=== PATIENT | female | born 1975 | race Caucasian/White ===

== ENCOUNTER 2016-04-30 14:19 | Emergency (ER) | payer BC ==
[2016-04-30] MEDS ORDERED: SODIUM CHLORIDE 0.9% 1000ML 1,000 ML IVS ONE ×3 (15:13→18:43)
[2016-04-30] MEDS ORDERED: KCL 20MEQ/WATER FOR INJ 100ML 20 MEQ in PREMIX BAG 1 BAG IVPB ONE (16:07)
[2016-04-30] MEDS ORDERED: KCL 20MEQ/WATER FOR INJ 100ML 100 ML IVPB ONE (16:34)
--- NOTE | 2016-04-30 21:17 | ED.PDOC ---
History of Present Illness - General Chief Complaint: Abdominal Pain Stated Complaint: nausea and vomiting, decreased appetite Time Seen by Provider: 04/30/16 14:50 Source: patient, family Exam Limitations: no limitations - History of Present Illness Initial Comments: Patient presents with her significant other who says that she has been refusing to eat or drink for three days. She has complained of an unusual feeling in her stomach. He says that she spits up food and water but that it is not like vomitus. It is more that she is refusing it. He is worried that she might be dehydrated. She is a difficult historian in that she refuses to answer some questions by being silent, yet she will converse with him in between questioning. Patient has an extensive psychiatric history. They have no other complaints currently. Timing/Duration: other - 3 days Severity: moderate Improving Factors: nothing Worsening Factors: nothing Associated Symptoms: loss of appetite Allergies/Adverse Reactions: Allergies Codeine Adverse Reaction (Verified 04/30/16 14:59) makes her feel nauseated adhesive Adverse Reaction (Intermediate, Uncoded 12/18/15 19:00) Other Scarred her after lumpectomy Home Medications: Ambulatory Orders Ziprasidone HCl [Geodon] 80 mg PO BID 09/25/14 Alprazolam [Xanax] 2 mg PO QID 09/19/15 Celecoxib 200 mg PO BID 01/29/16 Diclofenac Sodium (Topical) [Diclofenac Sodium] 1 % TD PRN PRN 01/29/16 Duloxetine HCl 60 mg PO BID 01/29/16 Esomeprazole Magnesium [Nexium] 40 mg PO DAILY 01/29/16 [place] Carbonate [[place] Carbonate ER] 300 mg PO BID 01/29/16 Pregabalin [Lyrica] 50 mg PO BID 01/29/16 Promethazine Tab [Phenergan Tablet] 25 mg PO Q6H PRN 01/29/16 QUEtiapine FUMARATE [Seroquel] 100 - 300 mg PO BEDTIME PRN 01/29/16 predniSONE [Prednisone] 20 mg PO DAILY 01/29/16 Dulera 200-5 Mcg/Act 2 puff INH BID 01/31/16 Albuterol Sulfate Nebs [Proventil Nebs] 2.5 mg INH QID #125 vial 02/02/16 levoFLOXacin [Levaquin] 500 mg PO DAILY #6 tab 02/02/16 Review of Systems - Review of Systems Constitutional: States: weakness EENTM: States: no symptoms reported Respiratory: States: no symptoms reported Cardiology: States: no symptoms reported Gastrointestinal/Abdominal: States: see HPI Genitourinary: States: no symptoms reported Musculoskeletal: States: no symptoms reported Skin: States: no symptoms reported Neurological: States: no symptoms reported Endocrine: States: no symptoms reported Hematologic/Lymphatic: States: no symptoms reported Past Medical History (General) - Patient Medical History Hx Seizures: No Hx Stroke: No Hx Dementia: No Hx Asthma: No Hx of COPD: Yes Hx Cardiac Disorders: No Hx Congestive Heart Failure: No Hx Pacemaker: No Hx Hypertension: No Hx Thyroid Disease: No Hx Diabetes: No Hx Gastroesophageal Reflux: Yes Hx Renal Disease: No Hx Cancer: No Hx of HIV: No Hx Hepatitis C: No Hx MRSA: No Surgical History: cholecystectomy, tonsillectomy, other - Vaccination History Hx Tetanus, Diphtheria Vaccination: Yes Hx Influenza Vaccination: No Hx Pneumococcal Vaccination: Yes - Social History Hx Tobacco Use: Yes Hx Chewing Tobacco Use: No Hx Alcohol Use: Yes Hx Substance Use: No Hx Substance Use Treatment: No Hx Depression: Yes Hx Physical Abuse: No Hx Emotional Abuse: No Hx Suspected Abuse: No - Activities of Daily Living Hospice Agency (if applicable):: None - Female History Patient is a Female of Child Bearing Age (10 -59 yrs old): No Hx Last Menstrual Period: 09/09/10 Patient : No Family Medical History - Family History Mother Family History: No Known Living Status: Still Living Hx Family Cancer: Yes Father Family History: Unknown Living Status: Cause of : cancer lungs Hx Family Asthma: Yes Hx Family Hypertension: Yes Hx Family Diabetes: Yes Hx Family Cancer: Yes Physical Exam - Physical Exam General Appearance: Alert Eye Exam: bilateral normal Ears, Nose, Throat: normal pharynx, other - mucous membranes are dry Neck: non-tender, full range of motion, supple Respiratory: lungs clear Cardiovascular/Chest: regular rate, rhythm Gastrointestinal/Abdominal: normal bowel sounds, non tender, soft Extremity: normal range of motion, non-tender, normal inspection Neurologic: no motor/sensory deficits Skin Exam: normal color Lymphatic: no adenopathy Progress - Progress Progress: 04/30/16 21:18 Cr 1.87 and potassium 3.2 Patient received NS one liter IV bolus x two and KCl 20 meq IV x one then creatinine and potassium were rechecked they were much improved , Cr 1.36 and potassium 3.5 She received a third one liter NS bolus then discharged with orders to increase oral fluids and follow up with her primary doctor this week. Laboratory Tests 04/30/16 04/30/16 15:04 18:56 WBC 9.8 RBC 5.19 Hgb 15.2 Hct 45.8 MCV 88.2 MCH 29.2 MCHC 33.1 RDW 15.6 H Plt Count 140 MPV 10.0 Absolute Neuts (auto) 7.30 H Absolute Lymphs (auto) 1.50 Absolute Monos (auto) 0.70 Absolute Eos (auto) 0.20 Absolute Basos (auto) 0.10 Neutrophils % 74.7 Lymphocytes % 15.5 L Monocytes % 7.2 Eosinophils % 1.8 Basophils % 0.8 Sodium 133 L 134 L Potassium 3.2 L 3.5 L Chloride 98 L 104 Carbon Dioxide 25 23 Anion Gap 13.2 10.5 L BUN 33 H 28 H Creatinine 1.67 H 1.36 H BUN/Creatinine Ratio 19.8 20.6 H Random Glucose 114 H 95 Serum Osmolality 274.5 L 273.5 L Calcium 9.5 8.5 Total Bilirubin 1.3 H AST 15 ALT 11 Alkaline Phosphatase 155 H Serum Total Protein 8.2 Albumin 4.8 Globulin 3.4 Albumin/Globulin Ratio 1.4 Lipase 40 Departure - Departure Clinical Impression: Dehydration, moderate Disposition: Discharge to Home or Self Care Condition: Good Departure Forms: ED Discharge - Pt. Copy, Patient Portal Self Enrollment Instructions: DI for Abdominal Pain-Adult Diet: other - increase oral fluids Home Medications: Ambulatory Orders Ziprasidone HCl [Geodon] 80 mg PO BID 09/25/14 Alprazolam [Xanax] 2 mg PO QID 09/19/15 Celecoxib 200 mg PO BID 01/29/16 Diclofenac Sodium (Topical) [Diclofenac Sodium] 1 % TD PRN PRN 01/29/16 Duloxetine HCl 60 mg PO BID 01/29/16 Esomeprazole Magnesium [Nexium] 40 mg PO DAILY 01/29/16 [place] Carbonate [[place] Carbonate ER] 300 mg PO BID 01/29/16 Pregabalin [Lyrica] 50 mg PO BID 01/29/16 Promethazine Tab [Phenergan Tablet] 25 mg PO Q6H PRN 01/29/16 QUEtiapine FUMARATE [Seroquel] 100 - 300 mg PO BEDTIME PRN 01/29/16 predniSONE [Prednisone] 20 mg PO DAILY 01/29/16 Dulera 200-5 Mcg/Act 2 puff INH BID 01/31/16 Albuterol Sulfate Nebs [Proventil Nebs] 2.5 mg INH QID #125 vial 02/02/16 levoFLOXacin [Levaquin] 500 mg PO DAILY #6 tab 02/02/16 Additional Instructions: Increase oral fluids. See your primary doctor this week.
[2016-04-30 22:01] VITALS: BP 102/68; TEMP 97.2; O2SAT 98
== END 2016-04-30 22:01 | disposition home or self-care (01) ==
LOC: ER 14:19
DX: E86.0 Dehydration (principal); J44.9 Chronic obstructive pulmonary disease, unspecified; K21.9 Gastro-esophageal reflux disease without esophagitis; Z87.891 Personal history of nicotine dependence; Z79.899 Other long term (current) drug therapy; Z91.048 Other nonmedicinal substance allergy status; Z88.6 Allergy status to analgesic agent
CPT/HCPCS: 36415; 80048; 80053; 83690; 85025; J3480; J7030

== ENCOUNTER 2016-05-02 09:29 | Emergency (ER) | payer BC ==
[2016-05-02] MEDS ORDERED: SODIUM CHLORIDE 0.9% 1000ML 1,000 ML IVS ONE (10:32)
--- NOTE | 2016-05-02 10:36 | ED.PDOC ---
History of Present Illness - General Chief Complaint: Neuro Symptoms/Deficits Stated Complaint: Confusion Time Seen by Provider: 05/02/16 10:19 Source: family Exam Limitations: clinical condition - History of Present Illness Initial Comments: Patient presents with altered mental status. She was here two days ago for weakness and refusal to eat and drink. She received NS boluses and became talkative and back to her baseline. Diagnosed with dehydration. She ate and drank upon getting home but then started to descend back into a lethargic state. Refuses to eat or drink. She normally smokes and she does not want to do that. She is alert and oriented to person, place, and time. The is worried that she has had a stroke. Patient will not answer any questions. Timing/Duration: other - 5 days, improved, then 2 days of current symptoms Improving Factors: nothing Worsening Factors: nothing Associated Symptoms: loss of appetite, malaise Allergies/Adverse Reactions: Allergies Codeine Adverse Reaction (Verified 04/30/16 14:59) makes her feel nauseated adhesive Adverse Reaction (Intermediate, Uncoded 12/18/15 19:00) Other Scarred her after lumpectomy Home Medications: Ambulatory Orders Ziprasidone HCl [Geodon] 80 mg PO BID 09/25/14 Alprazolam [Xanax] 2 mg PO QID 09/19/15 Celecoxib 200 mg PO BID 01/29/16 Diclofenac Sodium (Topical) [Diclofenac Sodium] 1 % TD PRN PRN 01/29/16 Duloxetine HCl 60 mg PO BID 01/29/16 Esomeprazole Magnesium [Nexium] 40 mg PO DAILY 01/29/16 [place] Carbonate [[place] Carbonate ER] 300 mg PO BID 01/29/16 Promethazine Tab [Phenergan Tablet] 25 mg PO Q6H PRN 01/29/16 QUEtiapine FUMARATE [Seroquel] 100 - 300 mg PO BEDTIME PRN 01/29/16 Dulera 200-5 Mcg/Act 2 puff INH BID 01/31/16 Albuterol Sulfate Nebs [Proventil Nebs] 2.5 mg INH QID #125 vial 02/02/16 levoFLOXacin [Levaquin] 500 mg PO DAILY #6 tab 02/02/16 Review of Systems - Review of Systems Constitutional: States: see HPI EENTM: States: no symptoms reported Respiratory: States: no symptoms reported Cardiology: States: no symptoms reported Gastrointestinal/Abdominal: States: no symptoms reported Genitourinary: States: no symptoms reported Musculoskeletal: States: no symptoms reported Skin: States: no symptoms reported Neurological: States: see HPI Endocrine: States: no symptoms reported, intolerance to heat Unable to Obtain Due To: condition Past Medical History (General) - Patient Medical History Hx Seizures: No Hx Stroke: No Hx Dementia: No Hx Asthma: No Hx of COPD: Yes Hx Cardiac Disorders: No Hx Congestive Heart Failure: No Hx Pacemaker: No Hx Hypertension: No Hx Thyroid Disease: Yes Hx Diabetes: No Hx Gastroesophageal Reflux: Yes Hx Renal Disease: No Hx Cancer: No Hx of HIV: No Hx Hepatitis C: No Hx MRSA: No Surgical History: cholecystectomy - Vaccination History Hx Tetanus, Diphtheria Vaccination: No Hx Influenza Vaccination: No Hx Pneumococcal Vaccination: No Immunizations Up to Date: Yes - Social History Hx Tobacco Use: Yes Hx Chewing Tobacco Use: No Hx Alcohol Use: Yes Hx Substance Use: No Hx Substance Use Treatment: No Hx Depression: No Feels Threatened In Home Enviroment: No Feels Threatened In a Relationship: No Hx Physical Abuse: No Hx Emotional Abuse: No Hx Suspected Abuse: No - Female History Patient is a Female of Child Bearing Age (10 -59 yrs old): Yes Hx Last Menstrual Period: 09/09/10 Patient : No Family Medical History - Family History Mother Family History: No Known Living Status: Still Living Hx Family Cancer: Yes Father Family History: Unknown Living Status: Cause of : cancer lungs Hx Family Asthma: Yes Hx Family Hypertension: Yes Hx Family Diabetes: Yes Hx Family Cancer: Yes Physical Exam - Physical Exam General Appearance: Alert, Lethargic Eye Exam: bilateral normal Ears, Nose, Throat: normal ENT inspection Neck: non-tender, full range of motion, supple Respiratory: lungs clear Cardiovascular/Chest: regular rate, rhythm Gastrointestinal/Abdominal: normal bowel sounds, non tender, soft Back Exam: normal inspection Extremity: normal inspection Neurologic: fudger II-XII nml as tested, no motor/sensory deficits, alert, depressed affect Skin Exam: normal color Lymphatic: no adenopathy Progress - Progress Progress: 05/02/16 15:26 Patient receive one liter NS bolus. AP was elevated and she vomited several times. CT head was negative and CT abdomen/pelvis was negative for acute disease. Suspicion for [place] toxicity vs. psychogenic causes vs. polypharmacy. Laboratory Tests 05/02/16 05/02/16 05/02/16 10:31 10:55 13:05 WBC 8.3 RBC 4.95 Hgb 14.2 Hct 43.4 MCV 87.8 MCH 28.8 MCHC 32.8 L RDW 15.8 H Plt Count 120 L MPV 9.9 Absolute Neuts (auto) 5.10 Absolute Lymphs (auto) 2.20 Absolute Monos (auto) 0.60 Absolute Eos (auto) 0.30 Absolute Basos (auto) 0.10 Neutrophils % 61.9 Lymphocytes % 26.2 Monocytes % 7.0 Eosinophils % 3.9 Basophils % 1.0 Sodium 135 Potassium 3.4 L Chloride 103 Carbon Dioxide 25 Anion Gap 10.4 L BUN 14 Creatinine 0.79 BUN/Creatinine Ratio 17.7 Random Glucose 127 H D Serum Osmolality 272.2 L Calcium 9.4 Total Bilirubin 0.9 AST 17 ALT 13 Alkaline Phosphatase 155 H Serum Total Protein 7.2 Albumin 4.4 Globulin 2.8 Albumin/Globulin Ratio 1.6 TSH 7.73 H Thyroxine (T4) 6.46 Serum HCG, Qual Negative Salicylates < 4.0 Acetaminophen < 10.0 L Transfer to [facility]. Departure - Departure Clinical Impression: Altered mental status Disposition: Transfer to Hospital Condition: Fair Departure Forms: ED Discharge - Pt. Copy, Patient Portal Self Enrollment Diet: other - As pre hospitalist Home Medications: Ambulatory Orders Ziprasidone HCl [Geodon] 80 mg PO BID 09/25/14 Alprazolam [Xanax] 2 mg PO QID 09/19/15 Celecoxib 200 mg PO BID 01/29/16 Diclofenac Sodium (Topical) [Diclofenac Sodium] 1 % TD PRN PRN 01/29/16 Duloxetine HCl 60 mg PO BID 01/29/16 Esomeprazole Magnesium [Nexium] 40 mg PO DAILY 01/29/16 [place] Carbonate [[place] Carbonate ER] 300 mg PO BID 01/29/16 Promethazine Tab [Phenergan Tablet] 25 mg PO Q6H PRN 01/29/16 QUEtiapine FUMARATE [Seroquel] 100 - 300 mg PO BEDTIME PRN 01/29/16 Dulera 200-5 Mcg/Act 2 puff INH BID 01/31/16 Albuterol Sulfate Nebs [Proventil Nebs] 2.5 mg INH QID #125 vial 02/02/16 levoFLOXacin [Levaquin] 500 mg PO DAILY #6 tab 02/02/16
--- NOTE | 2016-05-02 11:37 | CT ---
EXAM DESCRIPTION: CT HEAD WITHOUT IV CONTRAST CLINICAL HISTORY: altered mental status COMPARISON: None available TECHNIQUE: Non contrast cranial CT FINDINGS: Ventricles and sulci are unremarkable. There is no hemorrhage or mass. There are no white matter abnormalities detected. The calvarium is unremarkable. The visualized paranasal sinuses and the mastoids are clear. IMPRESSION: 1. Normal CT head Electronically signed by: Kana Roberts MD 05/02/2016 11:35
[2016-05-02] MEDS ORDERED: ONDANSETRON INJ 4 MG/2 ML VIAL IV ONE (13:10)
--- NOTE | 2016-05-02 13:22 | CT ---
EXAM DESCRIPTION: CT ABDOMEN PELVIS WITH IV CONTRAST CLINICAL HISTORY: vomiting, anorexia COMPARISON: None. TECHNIQUE: Post-contrast CT images of the abdomen and pelvis are obtained. CT scan done according to ALARA (As Low As Reasonably Achievable). FINDINGS: The visualized lung bases show mild atelectasis in the right middle lobe and right lower lobe. The liver, spleen comma pancreas, and adrenal glands are unremarkable. Surgical clips from cholecystectomy are seen without biliary tract obstruction. Abdominal vasculature is unremarkable. Kidneys show no abnormal calcifications. Low-attenuation probable cysts measuring 10 mm in the at upper pole cortex of the left kidney is seen. This is incompletely evaluated. No hydronephrosis. Urinary bladder is unremarkable. The uterus and ovaries are unremarkable. Appendix is within normal limits. No small bowel obstruction or inflammatory changes are seen. Colon is unremarkable. No significant diverticular disease. No pathologic lymphadenopathy is seen. No free intraperitoneal air or drainable fluid collections are identified. No aggressive bony lesions are identified. IMPRESSION: No acute findings on CT of the abdomen and pelvis. Cholecystectomy changes are noted. Mild probable atelectasis is seen in the lung bases. Electronically signed by: Ze Light MD 05/02/2016 13:21
[2016-05-02 16:46] VITALS: BP 139/78; TEMP 98.8; O2SAT 97
== END 2016-05-02 16:35 | disposition short-term general hospital (02) ==
LOC: ER 09:29
DX: R41.82 Altered mental status, unspecified (principal); J44.9 Chronic obstructive pulmonary disease, unspecified; K21.9 Gastro-esophageal reflux disease without esophagitis; E07.9 Disorder of thyroid, unspecified; Z87.891 Personal history of nicotine dependence; Z88.6 Allergy status to analgesic agent; Z91.048 Other nonmedicinal substance allergy status; Z79.899 Other long term (current) drug therapy
CPT/HCPCS: 70450; 74177; 80053; 80329; 84436; 84443; 84703; 85025; J2405; J7030

== ENCOUNTER 2016-07-16 07:21 | Emergency (ER) | payer BC ==
[2016-07-16 07:36] VITALS: TEMP 96.8
--- NOTE | 2016-07-16 07:44 | ED.PDOC ---
History of Present Illness - General Chief Complaint: Back Pain or Injury Stated Complaint: back pain Time Seen by Provider: 07/16/16 07:32 Source: patient, RN notes reviewed, Vital Signs reviewed Exam Limitations: no limitations - History of Present Illness Initial Comments: Patient comes in with c/o low back pain that started yesterday. She is concerned she has a ruptured disc or a UTI. She reports no trauma or recent injury. No urinary symptoms. No radiation of pain. No numbness, tingling or weakness in legs. Pain is worse with movement. Timing/Duration: 24 hours Quality/Severity: moderate, dullness, sharpness Back Pain Location: lumbar spine Back Pain Radiation: other - None Method of Injury/Prior Injury: other - None Improving Factors: rest Worsening Factors: movement Associated Symptoms: lower back pain Allergies/Adverse Reactions: Allergies Codeine Adverse Reaction (Verified 04/30/16 14:59) makes her feel nauseated adhesive Adverse Reaction (Intermediate, Uncoded 12/18/15 19:00) Other Scarred her after lumpectomy Home Medications: Ambulatory Orders Ziprasidone HCl [Geodon] 80 mg PO BID 09/25/14 Alprazolam [Xanax] 2 mg PO QID 09/19/15 Celecoxib 100 mg PO BID 01/29/16 Duloxetine HCl 30 mg PO BID 01/29/16 QUEtiapine FUMARATE [Seroquel] 300 mg PO BEDTIME PRN 01/29/16 Cyclobenzaprine HCl [Flexeril] 5 mg PO Q8HR PRN #12 tab 07/16/16 Naproxen [Naprosyn] 500 mg PO PRN 07/16/16 Nitrofurantoin Monohydrate Mac [Macrobid] 100 mg PO BID #20 cap 07/16/16 Pregabalin [Lyrica] 75 mg PO BID 07/16/16 Thyroid [Nature-Throid] 32.5 mg PO DAILY 07/16/16 Triamterene & Hydrochlorothiaz [Maxzide-25 37.5-25 mg] 1 tab PO DAILY 07/16/16 Review of Systems - Review of Systems Constitutional: States: no symptoms reported EENTM: States: no symptoms reported Respiratory: States: no symptoms reported Cardiology: States: no symptoms reported Gastrointestinal/Abdominal: States: no symptoms reported Genitourinary: States: no symptoms reported. Denies: dysuria, frequency, pain Musculoskeletal: States: back pain. Denies: muscle stiffness, neck pain Skin: States: no symptoms reported Neurological: States: no symptoms reported. Denies: numbness, paresthesia, tingling, weakness All other Systems: No Change from Baseline Past Medical History (General) - Patient Medical History Hx Seizures: No Hx Stroke: No Hx Dementia: No Hx Asthma: No Hx of COPD: Yes Hx Cardiac Disorders: No Hx Congestive Heart Failure: No Hx Pacemaker: No Hx Hypertension: No Hx Thyroid Disease: Yes Hx Diabetes: No Hx Gastroesophageal Reflux: Yes Hx Renal Disease: No Hx Cancer: No Hx of HIV: No Hx Hepatitis C: No Hx MRSA: No Surgical History: cholecystectomy, tonsillectomy - Vaccination History Hx Tetanus, Diphtheria Vaccination: No Hx Influenza Vaccination: No Hx Pneumococcal Vaccination: No - Social History Hx Tobacco Use: Yes - smokes 2 ppd Hx Chewing Tobacco Use: No Hx Alcohol Use: Yes Hx Substance Use: No Hx Substance Use Treatment: No Hx Depression: No Hx Physical Abuse: No Hx Emotional Abuse: No Hx Suspected Abuse: No - Female History Hx Last Menstrual Period: 09/09/10 Patient : No Family Medical History - Family History Mother Family History: No Known Living Status: Still Living Hx Family Cancer: Yes Father Family History: Unknown Living Status: Cause of : cancer lungs Hx Family Asthma: Yes Hx Family Hypertension: Yes Hx Family Diabetes: Yes Hx Family Cancer: Yes Physical Exam - Physical Exam General Appearance: Alert, No apparent distress, Lethargic - Due to taking Seroquel last night and not sleeping, reports this is normal for her., Well Developed, Well Groomed, Well Hydrated, Well Nourished, Other - uncomfortable Cardiovascular/Respiratory: regular rate, rhythm, no M/R/G, no JVD, normal breath sounds, no respiratory distress Gastrointestinal/Abdominal: normal bowel sounds, non tender, soft, no organomegaly, no pulsatile mass Back Exam: no CVA tenderness, vertebral tenderness - Lumbar spine, other - Pain with movement. Extremity Exam: no evidence of injury, normal range of motion, non-tender, no pedal edema Neurologic: no motor/sensory deficits, alert, normal mood/affect, oriented x 3 Skin Exam: normal color, warm/dry Progress - Progress Progress: 07/16/16 08:54 Patient up walking without difficulty. Urine does show UTI so will start Macrobid. - Results/Orders Results/Orders: Laboratory Tests 07/16/16 08:26 Urine Color [place] H Urine Appearance Clear Urine pH 5.0 Ur Specific [place] 1.015 Urine Protein 100 H Urine Glucose (UA) 100 H Urine Ketones Trace Urine Blood Negative Urine Nitrite Positive H Urine Bilirubin Small H Urine Urobilinogen 2.0 H Ur Leukocyte Esterase Large H Urine RBC 0 Urine WBC 0 Ur Epithelial Cells 0 Urine Bacteria 0 Departure - Departure Clinical Impression: Acute cystitis Qualifiers: Hematuria presence: with hematuria Qualified Code(s): N30.01 - Acute cystitis with hematuria Lumbar strain Qualifiers: Encounter type: initial encounter Qualified Code(s): S39.012A - Strain of muscle, fascia and tendon of lower back, initial encounter Time of Disposition: 09:03 Disposition: Discharge to Home or Self Care Condition: Good Departure Forms: ED Discharge - Pt. Copy, Patient Portal Self Enrollment Instructions: DI for Low Back Pain, DI for Acute Cystitis Diet: resume usual diet Activity: increase activity as tolerated Referrals: GLADIS EPPS,RASHAD Rascon [Primary Care Provider] - 1-2 Weeks Prescriptions: Cyclobenzaprine HCl [Flexeril] 5 mg PO Q8HR PRN #12 tab PRN Reason: Moderate To Severe Pain Nitrofurantoin Monohydrate Mac [Macrobid] 100 mg PO BID #20 cap Home Medications: Ambulatory Orders Ziprasidone HCl [Geodon] 80 mg PO BID 09/25/14 Alprazolam [Xanax] 2 mg PO QID 09/19/15 Celecoxib 100 mg PO BID 01/29/16 Duloxetine HCl 30 mg PO BID 01/29/16 QUEtiapine FUMARATE [Seroquel] 300 mg PO BEDTIME PRN 01/29/16 Cyclobenzaprine HCl [Flexeril] 5 mg PO Q8HR PRN #12 tab 07/16/16 Naproxen [Naprosyn] 500 mg PO PRN 07/16/16 Nitrofurantoin Monohydrate Mac [Macrobid] 100 mg PO BID #20 cap 07/16/16 Pregabalin [Lyrica] 75 mg PO BID 07/16/16 Thyroid [Nature-Throid] 32.5 mg PO DAILY 07/16/16 Triamterene & Hydrochlorothiaz [Maxzide-25 37.5-25 mg] 1 tab PO DAILY 07/16/16
[2016-07-16] MEDS: CYCLOBENZAPRINE HCL 5 MG TAB PO ONE (07:45)
--- NOTE | 2016-07-16 08:08 | RAD ---
PROCEDURE: Lumbar Spine 3 Views Clinical History: low back pain Indication: Same as above Comparison: None . Technique: 3.0 views of the lumbar spine were done. Findings: There is no loss of vertebral body height. There is no evidence of spondylolisthesis in the lumbosacral spine. The intervertebral disc spaces are well-maintained. There is mild anterolateral osteophyte formation seen at L4 and L5 levels. There is no significant scoliotic curvature of the lumbar spine. The bone mineralization is normal for patient's age. The thoracolumbar and the lumbosacral junction are intact. The visualized portions of the bilateral sacroiliac joints are unremarkable. The paravertebral soft tissues are radiographically unremarkable. The posterior elements are normal. There is no visualization of any radiopaque foreign bodies in the soft tissues. Impression: Minimal degenerative change in the lumbar spine, as described above Location of Interpretation: [facility] Electronically signed by: Allan Ferrer MD 07/16/2016 8:08 AM CDT
[2016-07-16] MEDS: KETOROLAC TROMETHAMINE INJ 60 MG/2 ML VIAL IM ONE (08:52)
[2016-07-16 08:58] VITALS: BP 109/65; O2SAT 95
== END 2016-07-16 09:11 | disposition home or self-care (01) ==
LOC: ER 07:21
DX: S39.012A Strain of muscle, fascia and tendon of lower back, initial encounter (principal); N30.01 Acute cystitis with hematuria; F17.200 Nicotine dependence, unspecified, uncomplicated; J44.9 Chronic obstructive pulmonary disease, unspecified; K21.9 Gastro-esophageal reflux disease without esophagitis; E07.9 Disorder of thyroid, unspecified; Z79.899 Other long term (current) drug therapy; Z85.118 Personal history of other malignant neoplasm of bronchus and lung; Z88.6 Allergy status to analgesic agent; Z91.048 Other nonmedicinal substance allergy status

== ENCOUNTER 2016-09-21 17:46 | Emergency (ER) | payer OTHER ==
[2016-09-21 18:02] VITALS: O2SAT 95
[2016-09-21] MEDS ORDERED: METOCLOPRAMIDE HCL INJ 10 MG/2 ML VIAL IV ONE (18:13)
[2016-09-21] MEDS ORDERED: LIDOCAINE VIS-MYLANTA 30 ML UD PO ONE (18:13)
--- NOTE | 2016-09-21 18:47 | RAD ---
EXAM DESCRIPTION: Abdomen Series CLINICAL HISTORY: 41 years Female ,abd pain, n/v COMPARISON: None. TECHNIQUE: Frontal view chest x-ray and two views of the abdomen. FINDINGS: The cardiomediastinal silhouette appears unremarkable. No consolidating infiltrates or pleural effusions. No free air is identified beneath the hemidiaphragms. No dilated loops of bowel to suggest obstruction. IMPRESSION: No acute plain film abnormality is identified. Electronically signed by: Debora Kenyon 09/21/2016 6:46 PM CDT
[2016-09-21] MEDS ORDERED: HYDROmorphone HCL INJ 2 MG/ML VIAL IV ONE (20:30)
[2016-09-21] MEDS ORDERED: DICYCLOMINE HCL 20 MG TAB PO ONE (20:30)
[2016-09-21] MEDS ORDERED: SODIUM CHLORIDE 0.9% 1000ML 1,000 ML IVS ONE (20:31)
--- NOTE | 2016-09-21 22:26 | ED.PDOC ---
History of Present Illness - General Chief Complaint: Abdominal Pain Stated Complaint: abdominal pain Time Seen by Provider: 09/21/16 18:03 Source: patient Exam Limitations: no limitations - History of Present Illness Initial Comments: the patient is a 41-year-old female presenting to the emergency room secondary to abdominal pain with nausea and vomiting for the last 3 days. No definite fevers. No urinary symptoms. No back pain. No blood or bile in the vomitus. No syncope or near syncope. No palpitations. Looking back over the patient's history she has had multiple episodesof nausea and vomiting and abdominal pain. Abdominal pain is diffuse. It is somewhat cramping in nature. The severity fluctuates. The patient does also have significant anxiety. She does take multiple medications which can cause stomach discomfort.the patient has seen gastroenterology on multiple occasions. She reports that she has had endoscopies donethat did not show on the cause for the pain. Severity: moderate Improving Factors: nothing Worsening Factors: nothing Associated Symptoms: malaise, nausea/vomiting Allergies/Adverse Reactions: Allergies Codeine Adverse Reaction (Verified 09/21/16 18:02) makes her feel nauseated adhesive Adverse Reaction (Intermediate, Uncoded 09/21/16 18:02) Other Scarred her after lumpectomy Home Medications: Ambulatory Orders Ziprasidone HCl [Geodon] 80 mg PO BID 09/25/14 Alprazolam [Xanax] 2 mg PO QID 09/19/15 Celecoxib 100 mg PO BID 01/29/16 Duloxetine HCl 30 mg PO BID 01/29/16 QUEtiapine FUMARATE [Seroquel] 300 mg PO BEDTIME PRN 01/29/16 Cyclobenzaprine HCl [Flexeril] 5 mg PO Q8HR PRN #12 tab 07/16/16 Naproxen [Naprosyn] 500 mg PO PRN 07/16/16 Nitrofurantoin Monohydrate Mac [Macrobid] 100 mg PO BID #20 cap 07/16/16 Pregabalin [Lyrica] 75 mg PO BID 07/16/16 Thyroid [Nature-Throid] 32.5 mg PO DAILY 07/16/16 Triamterene & Hydrochlorothiaz [Maxzide-25 37.5-25 mg] 1 tab PO DAILY 07/16/16 Xmqrrqvofyezp-Jkml-Pnmlitlkmd [Fioricet] 1 ea PO Q8H PRN #21 tab 09/21/16 Dicyclomine HCl 10 mg PO Q8HRS PRN #30 cap 09/21/16 Review of Systems - Review of Systems Constitutional: States: no symptoms reported EENTM: States: no symptoms reported Respiratory: States: no symptoms reported Cardiology: States: no symptoms reported Gastrointestinal/Abdominal: States: abdominal pain, nausea, vomiting Genitourinary: States: no symptoms reported Musculoskeletal: States: no symptoms reported Skin: States: no symptoms reported Neurological: States: anxiety Endocrine: States: no symptoms reported All other Systems: No Change from Baseline Past Medical History (General) - Patient Medical History Hx Seizures: No Hx Stroke: No Hx Dementia: No Hx Asthma: No Hx of COPD: Yes Hx Cardiac Disorders: No Hx Congestive Heart Failure: No Hx Pacemaker: No Hx Hypertension: No Hx Thyroid Disease: Yes Hx Diabetes: No Hx Gastroesophageal Reflux: Yes Hx Renal Disease: No Hx Cancer: No Hx of HIV: No Hx Hepatitis C: No Hx MRSA: No Surgical History: cholecystectomy, other - Vaccination History Hx Tetanus, Diphtheria Vaccination: No Hx Influenza Vaccination: No Hx Pneumococcal Vaccination: No - Social History Hx Tobacco Use: Yes - smokes 2 ppd Hx Chewing Tobacco Use: No Hx Alcohol Use: Yes - occ Hx Substance Use: No Hx Substance Use Treatment: No Hx Depression: No Hx Physical Abuse: No Hx Emotional Abuse: No Hx Suspected Abuse: No - Female History Patient is a Female of Child Bearing Age (10 -59 yrs old): No Hx Last Menstrual Period: 09/09/10 Patient : No Family Medical History - Family History Mother Family History: No Known Living Status: Still Living Hx Family Cancer: Yes Father Family History: Unknown Living Status: Cause of : cancer lungs Hx Family Asthma: Yes Hx Family Hypertension: Yes Hx Family Diabetes: Yes Hx Family Cancer: Yes Physical Exam - Physical Exam General Appearance: Alert, Anxious, Obvious distress Ears, Nose, Throat: hearing grossly normal, normal pharynx Neck: non-tender, supple Respiratory: chest non-tender, lungs clear, normal breath sounds, no respiratory distress, no accessory muscle use Cardiovascular/Chest: normal peripheral pulses, regular rate, rhythm, no edema Peripheral Pulses: radial,right: 2+, radial,left: 2+, dorsalis pedis,right: 2+, dorsalis pedis,left: 2+ Gastrointestinal/Abdominal: soft, other - obese, diffuse discomfort to palpation. No definite rebound or peritoneal signs. Rectal Exam: deferred Back Exam: no CVA tenderness Extremity: normal range of motion, non-tender, normal inspection, no pedal edema , normal capillary refill Neurologic: alert, oriented x 3, other - extremely anxious Skin Exam: normal color Comments: Vital Signs - 24 hr 09/21/16 17:50 Temperature 97.0 F L Pulse Rate [ 100 H pulse ox] Respiratory 20 Rate Blood Pressure 116/75 [Left Arm] O2 Sat by Pulse 95 Oximetry Progress - Progress Progress: 09/21/16 22:29 the patient is a 41-year-old female presenting with a recurrence of her abdominal pain and nausea and vomiting. The patient received some IV fluids for mild dehydration. She received a dose of opiate pain medications as well as some nausea medications and dicyclomine. She is feeling better at this point. When her stomach is settled back down she needs to start taking a Centrum silver daily with food but not with her other medications. she needs to keep well-hydrated. She needs to keep follow-up with her primary care doctor early next week. She should also keep follow-up with gastroenterology. The patient is going to be written for a short prescription of dicyclomine to use as a trial to see if this helps with her symptoms. A short prescription of Fioricet will also be used for pain control. ER warnings were given. - Results/Orders Results/Orders: Laboratory Tests 09/21/16 09/21/16 09/21/16 18:25 18:25 18:25 WBC 8.4 RBC 5.54 H Hgb 15.4 Hct 46.3 MCV 83.5 MCH 27.7 MCHC 33.4 RDW 17.6 H Plt Count 197 MPV 8.9 Absolute Neuts (auto) 4.60 Absolute Lymphs (auto) 3.00 Absolute Monos (auto) 0.50 Absolute Eos (auto) 0.20 Absolute Basos (auto) 0.10 Neutrophils % 55.2 Lymphocytes % 35.2 Monocytes % 5.8 Eosinophils % 2.9 Basophils % 0.9 PT 10.7 INR 0.950 PTT (SP) 30.9 Sodium 139 Potassium 3.5 L Chloride 102 Carbon Dioxide 25 Anion Gap 15.5 BUN 18 Creatinine 1.05 BUN/Creatinine Ratio 17.1 Random Glucose 94 Serum Osmolality 279.2 Lactic Acid Calcium 9.3 Magnesium 2.1 Total Bilirubin 0.7 AST 19 ALT 19 Alkaline Phosphatase 91 Creatine Kinase 54 CK-MB (CK-2) 0.9 CK-MB (CK-2) % Not Reportable Troponin I < 0.02 Serum Total Protein 8.2 Albumin 4.6 Globulin 3.6 H Albumin/Globulin Ratio 1.3 Amylase 36 Lipase 20 L Serum HCG, Qual 09/21/16 09/21/16 18:25 18:45 WBC RBC Hgb Hct MCV MCH MCHC RDW Plt Count MPV Absolute Neuts (auto) Absolute Lymphs (auto) Absolute Monos (auto) Absolute Eos (auto) Absolute Basos (auto) Neutrophils % Lymphocytes % Monocytes % Eosinophils % Basophils % PT INR PTT (SP) Sodium Potassium Chloride Carbon Dioxide Anion Gap BUN Creatinine BUN/Creatinine Ratio Random Glucose Serum Osmolality Lactic Acid 1.4 Calcium Magnesium Total Bilirubin AST ALT Alkaline Phosphatase Creatine Kinase CK-MB (CK-2) CK-MB (CK-2) % Troponin I Serum Total Protein Albumin Globulin Albumin/Globulin Ratio Amylase Lipase Serum HCG, Qual Negative abdominal x-ray appears benign. Departure - Departure Clinical Impression: Cyclical vomiting with nausea Qualifiers: Vomiting Intractability: unspecified Qualified Code(s): G43.A0 - Cyclical vomiting, not intractable Disposition: Discharge to Home or Self Care Departure Forms: ED Discharge - Pt. Copy, Patient Portal Self Enrollment Instructions: DI for Abdominal Pain-Adult Referrals: GLADIS EPPS,RASHAD Rascon [Primary Care Provider] - 1-2 Weeks Prescriptions: Dicyclomine HCl 10 mg PO Q8HRS PRN #30 cap PRN Reason: Abdominal Cramping Mqjbsqcozmtqx-Cstu-Voqzmovuyh [Fioricet] 1 ea PO Q8H PRN #21 tab PRN Reason: Pain Home Medications: Ambulatory Orders Ziprasidone HCl [Geodon] 80 mg PO BID 09/25/14 Alprazolam [Xanax] 2 mg PO QID 09/19/15 Celecoxib 100 mg PO BID 01/29/16 Duloxetine HCl 30 mg PO BID 01/29/16 QUEtiapine FUMARATE [Seroquel] 300 mg PO BEDTIME PRN 01/29/16 Cyclobenzaprine HCl [Flexeril] 5 mg PO Q8HR PRN #12 tab 07/16/16 Naproxen [Naprosyn] 500 mg PO PRN 07/16/16 Nitrofurantoin Monohydrate Mac [Macrobid] 100 mg PO BID #20 cap 07/16/16 Pregabalin [Lyrica] 75 mg PO BID 07/16/16 Thyroid [Nature-Throid] 32.5 mg PO DAILY 07/16/16 Triamterene & Hydrochlorothiaz [Maxzide-25 37.5-25 mg] 1 tab PO DAILY 07/16/16 Vytwmvpxpqfhb-Czig-Esyszcxfyu [Fioricet] 1 ea PO Q8H PRN #21 tab 09/21/16 Dicyclomine HCl 10 mg PO Q8HRS PRN #30 cap 09/21/16 Additional Instructions: the patient is a 41-year-old female presenting with a recurrence of her abdominal pain and nausea and vomiting. The patient received some IV fluids for mild dehydration. She received a dose of opiate pain medications as well as some nausea medications and dicyclomine. She is feeling better at this point. When her stomach is settled back down she needs to start taking a Centrum silver daily with food but not with her other medications. she needs to keep well-hydrated. She needs to keep follow-up with her primary care doctor early next week. She should also keep follow-up with gastroenterology. The patient is going to be written for a short prescription of dicyclomine to use as a trial to see if this helps with her symptoms. A short prescription of Fioricet will also be used for pain control. ER warnings were given.
[2016-09-21 23:00] VITALS: BP 119/74; TEMP 98.1
== END 2016-09-21 22:40 | disposition home or self-care (01) ==
LOC: ER 17:46
DX: G43.A0 Cyclical vomiting, in migraine, not intractable (principal); J44.9 Chronic obstructive pulmonary disease, unspecified; E07.9 Disorder of thyroid, unspecified; K21.9 Gastro-esophageal reflux disease without esophagitis; F17.200 Nicotine dependence, unspecified, uncomplicated; Z88.6 Allergy status to analgesic agent; Z91.048 Other nonmedicinal substance allergy status; Z79.899 Other long term (current) drug therapy
CPT/HCPCS: 36415; 74020; 80053; 82150; 82550; 82553; 83605; 83690; 83735; 84484; 84703; 85025; 85610; 85730; J1170; J2765; J7030

== ENCOUNTER 2016-11-16 01:49 | Emergency (ER) | payer OTHER ==
[2016-11-16 02:05] VITALS: BP 111/78; TEMP 97.8; O2SAT 92
[2016-11-16] MEDS ORDERED: KETOROLAC TROMETHAMINE INJ 30 MG/ML VIAL IM ONE (02:42)
[2016-11-16] MEDS ORDERED: CIPROFLOXACIN 500 MG TAB PO ONE (02:42)
--- NOTE | 2016-11-16 02:45 | ED.PDOC ---
History of Present Illness - General Chief Complaint: Back Pain or Injury Stated Complaint: bilat flank pain x's 1 week Time Seen by Provider: 11/16/16 02:19 Source: patient Exam Limitations: no limitations - History of Present Illness Initial Comments: the patient is a 41-year-old female presenting to the emergency room secondary to bilateral back painin the mid to low back. She has had some urinary symptoms of frequencyand mild dysuria. She does have a history of recurrent urinary tract infections. No definite fevers. She has had some malaise. Additionally she did just have her Lamictal dose ramped up. She is on numerous other medications.she denies constipation or diarrhea. Timing/Duration: 1 week Severity: moderate Improving Factors: nothing Worsening Factors: nothing Associated Symptoms: malaise Allergies/Adverse Reactions: Allergies Codeine Adverse Reaction (Verified 11/16/16 02:05) makes her feel nauseated adhesive Adverse Reaction (Intermediate, Uncoded 11/16/16 02:05) Other Scarred her after lumpectomy Home Medications: Ambulatory Orders Ziprasidone HCl [Geodon] 80 mg PO BID 09/25/14 Alprazolam [Xanax] 2 mg PO QID 09/19/15 Celecoxib 100 mg PO BID 01/29/16 QUEtiapine FUMARATE [Seroquel] 300 mg PO BEDTIME PRN 01/29/16 Thyroid [Nature-Throid] 32.5 mg PO DAILY 07/16/16 Triamterene & Hydrochlorothiaz [Maxzide-25 37.5-25 mg] 1 tab PO DAILY 07/16/16 Phydwzumugdft-Tqeo-Snfsbhhyxi [Fioricet] 1 ea PO Q8H PRN #21 tab 11/16/16 Ciprofloxacin [Cipro] 250 mg PO BID #7 tab 11/16/16 Mometasone Furoate-Formoterol [Dulera 100-5 Mcg/Act] 1 aer IN PRN 11/16/16 Pantoprazole Tablet [Protonix] 40 mg PO ACBK 11/16/16 Promethazine Tab [Phenergan Tablet] 25 mg PO PRN 11/16/16 Terbinafine HCl [Lamisil] 100 mg PO BEDTIME 11/16/16 Review of Systems - Review of Systems Constitutional: States: malaise EENTM: States: no symptoms reported Respiratory: States: no symptoms reported Cardiology: States: no symptoms reported Gastrointestinal/Abdominal: States: no symptoms reported Genitourinary: States: dysuria, frequency, pain Musculoskeletal: States: back pain Skin: States: no symptoms reported Neurological: States: anxiety, depressed Endocrine: States: no symptoms reported All other Systems: No Change from Baseline Past Medical History (General) - Patient Medical History Hx Seizures: No Hx Stroke: No Hx Dementia: No Hx Asthma: No Hx of COPD: Yes Hx Cardiac Disorders: No Hx Congestive Heart Failure: No Hx Pacemaker: No Hx Hypertension: No Hx Thyroid Disease: Yes Hx Diabetes: No Hx Gastroesophageal Reflux: Yes Hx Renal Disease: No Hx Cancer: No Hx of HIV: No Hx Hepatitis C: No Hx MRSA: No Surgical History: appendectomy, cholecystectomy, tonsillectomy - Vaccination History Hx Tetanus, Diphtheria Vaccination: Yes Hx Influenza Vaccination: No Hx Pneumococcal Vaccination: No - Social History Hx Tobacco Use: Yes - smokes 2 ppd Hx Chewing Tobacco Use: No Hx Alcohol Use: Yes - occ Hx Substance Use: No Hx Substance Use Treatment: No Hx Depression: No Feels Threatened In Home Enviroment: No Feels Threatened In a Relationship: No Hx Physical Abuse: No Hx Emotional Abuse: No Hx Suspected Abuse: No - Female History Hx Last Menstrual Period: 09/09/10 Patient : No Family Medical History - Family History Mother Family History: No Known Living Status: Still Living Hx Family Cancer: Yes Father Family History: Unknown Living Status: Cause of : cancer lungs Hx Family Asthma: Yes Hx Family Hypertension: Yes Hx Family Diabetes: Yes Hx Family Cancer: Yes Physical Exam - Physical Exam General Appearance: Alert, No apparent distress Ears, Nose, Throat: hearing grossly normal, normal ENT inspection, normal pharynx Neck: non-tender, full range of motion Respiratory: normal breath sounds, no respiratory distress, no accessory muscle use Cardiovascular/Chest: normal peripheral pulses, regular rate, rhythm, no edema Peripheral Pulses: radial,right: 2+, radial,left: 2+, dorsalis pedis,right: 2+, dorsalis pedis,left: 2+, posterior tibialis,right: 2+, posterior tibialis,left: 2+ Gastrointestinal/Abdominal: non tender, soft Rectal Exam: deferred Back Exam: CVA tenderness (R), CVA tenderness (L) Extremity: non-tender, no pedal edema, normal capillary refill Neurologic: night time babysitter II-XII nml as tested, alert, oriented x 3 Skin Exam: normal color Comments: Vital Signs - 24 hr 11/16/16 02:00 Temperature 97.8 F Pulse Rate [ 96 H monitor] Respiratory 20 Rate Blood Pressure 111/78 [Left Arm] O2 Sat by Pulse 92 L Oximetry Progress - Progress Progress: 11/16/16 02:46 the patient is a 41-year-old female presenting secondary to low back pain bilaterally with urinary symptoms. She does appear to have a significant urinary tract infection. She will be treated with ciprofloxacin for 7 days There is a possibility of her psychiatric medications contributing to the low back pain. She should keep very well hydrated to help reduce side effects. If low back pain persists after clearance of the urinary tract infection then she may have to explore reducing some of these medications. ER warnings were given. - Results/Orders Results/Orders: Laboratory Tests 11/16/16 02:17 Urine Color [place] H Urine Appearance Clear Urine pH Ur Specific [place] Urine Protein Urine Glucose (UA) Urine Ketones Urine Blood Urine Nitrite Urine Bilirubin Urine Urobilinogen Ur Leukocyte Esterase Urine RBC 1-3 Urine WBC 10-20 H Ur Epithelial Cells 1-3 Urine Bacteria 2+ H the patient is taking Azo Departure - Departure Clinical Impression: Low back pain Qualifiers: Chronicity: chronic Back pain laterality: bilateral Sciatica presence: without sciatica Qualified Code(s): M54.5 - Low back pain; G89.29 - Other chronic pain Urinary tract infection Qualifiers: Urinary tract infection type: site unspecified Hematuria presence: without hematuria Qualified Code(s): N39.0 - Urinary tract infection, site not specified Disposition: Discharge to Home or Self Care Condition: Fair Departure Forms: ED Discharge - Pt. Copy, Patient Portal Self Enrollment Instructions: DI for Low Back Pain Diet: regular diet Activity: increase activity as tolerated Referrals: GLADIS EPPS,RASHAD Rascon [Primary Care Provider] - 1-2 Weeks Prescriptions: Jdvukvmphrjhb-Cnxf-Fguullmyuv [Fioricet] 1 ea PO Q8H PRN #21 tab PRN Reason: Pain Ciprofloxacin [Cipro] 250 mg PO BID #7 tab Home Medications: Ambulatory Orders Ziprasidone HCl [Geodon] 80 mg PO BID 09/25/14 Alprazolam [Xanax] 2 mg PO QID 09/19/15 Celecoxib 100 mg PO BID 01/29/16 QUEtiapine FUMARATE [Seroquel] 300 mg PO BEDTIME PRN 01/29/16 Thyroid [Nature-Throid] 32.5 mg PO DAILY 07/16/16 Triamterene & Hydrochlorothiaz [Maxzide-25 37.5-25 mg] 1 tab PO DAILY 07/16/16 Ngrfrabocvkuv-Kawb-Tbqfuhjcgh [Fioricet] 1 ea PO Q8H PRN #21 tab 11/16/16 Ciprofloxacin [Cipro] 250 mg PO BID #7 tab 11/16/16 Mometasone Furoate-Formoterol [Dulera 100-5 Mcg/Act] 1 aer IN PRN 11/16/16 Pantoprazole Tablet [Protonix] 40 mg PO ACBK 11/16/16 Promethazine Tab [Phenergan Tablet] 25 mg PO PRN 11/16/16 Terbinafine HCl [Lamisil] 100 mg PO BEDTIME 11/16/16 Additional Instructions: the patient is a 41-year-old female presenting secondary to low back pain bilaterally with urinary symptoms. She does appear to have a significant urinary tract infection. She will be treated with ciprofloxacin for 7 days There is a possibility of her psychiatric medications contributing to the low back pain. She should keep very well hydrated to help reduce side effects. If low back pain persists after clearance of the urinary tract infection then she may have to explore reducing some of these medications. ER warnings were given.
== END 2016-11-16 02:55 | disposition home or self-care (01) ==
LOC: ER 01:49
DX: N39.0 Urinary tract infection, site not specified (principal); M54.5 Low back pain; G89.29 Other chronic pain; J44.9 Chronic obstructive pulmonary disease, unspecified; E07.9 Disorder of thyroid, unspecified; K21.9 Gastro-esophageal reflux disease without esophagitis; Z91.048 Other nonmedicinal substance allergy status; Z79.899 Other long term (current) drug therapy; Z88.6 Allergy status to analgesic agent
CPT/HCPCS: 81001; 87086; J1885

== ENCOUNTER 2016-12-25 03:23 | Emergency (ER) | payer OTHER ==
[2016-12-25 03:45] VITALS: BP 105/73; TEMP 97.6; O2SAT 92
--- NOTE | 2016-12-25 04:03 | ED.PDOC ---
History of Present Illness - General Chief Complaint: Back Pain or Injury Stated Complaint: thinks she has a UTI, c/o left side pain Time Seen by Provider: 12/25/16 03:55 Source: patient, RN notes reviewed, Vital Signs reviewed, family - - History of Present Illness Initial Comments: History mainly obtained from due to patient sleeping through whole visit until yelled at her to wake up at the very end and then requested Dilaudid for pain. Per she has been having L flank pain since Sunday. Thinks she has a UTI. She got up to go to the bathroom this morning and told she felt something pop in her L back. He reports she is sleeping due to sleep medication and really is hurting and needs something for pain. Timing/Duration: days - 2 Quality/Severity: severe, dullness Back Pain Location: other - L flank Back Pain Radiation: other - None Method of Injury/Prior Injury: unknown Improving Factors: nothing Worsening Factors: other - coughing Associated Symptoms: denies symptoms Allergies/Adverse Reactions: Allergies Codeine Adverse Reaction (Verified 12/25/16 03:42) makes her feel nauseated adhesive Allergy (Intermediate, Uncoded 12/25/16 03:42) Other Scarred her after lumpectomy Home Medications: Ambulatory Orders Ziprasidone HCl [Geodon] 80 mg PO BID 09/25/14 Alprazolam [Xanax] 2 mg PO QID 09/19/15 Celecoxib 200 mg PO BID 01/29/16 QUEtiapine FUMARATE [Seroquel] 400 mg PO BEDTIME PRN 01/29/16 Thyroid [Nature-Throid] 32.5 mg PO DAILY 07/16/16 Triamterene & Hydrochlorothiaz [Maxzide-25 37.5-25 mg] 1 tab PO DAILY 07/16/16 Cnhkdffogdgba-Btlg-Mxmvntcdsg [Fioricet] 1 ea PO Q8H PRN #21 tab 11/16/16 Mometasone Furoate-Formoterol [Dulera 100-5 Mcg/Act] 1 aer IN PRN 11/16/16 Pantoprazole Tablet [Protonix] 40 mg PO ACBK 11/16/16 Promethazine Tab [Phenergan Tablet] 25 mg PO PRN 11/16/16 Terbinafine HCl [Lamisil] 100 mg PO BEDTIME 11/16/16 Ciprofloxacin [Cipro] 500 mg PO BID #14 tab 12/25/16 Gabapentin 100 mg PO QID 12/25/16 Lamotrigine [Lamictal] 200 mg PO DAILY 12/25/16 Review of Systems - Review of Systems Constitutional: States: no symptoms reported Respiratory: States: cough Gastrointestinal/Abdominal: States: no symptoms reported Genitourinary: States: see HPI, pain - Taking AZO. Denies: dysuria, frequency Musculoskeletal: States: back pain Skin: States: no symptoms reported All other Systems: No Change from Baseline Past Medical History (General) - Patient Medical History Hx Seizures: No Hx Stroke: No Hx Dementia: No Hx Asthma: No Hx of COPD: Yes Hx Cardiac Disorders: No Hx Congestive Heart Failure: No Hx Pacemaker: No Hx Hypertension: No Hx Thyroid Disease: Yes Hx Diabetes: No Hx Gastroesophageal Reflux: Yes Hx Renal Disease: No Hx Cancer: No Hx of HIV: No Hx Hepatitis C: No Hx MRSA: No Surgical History: cholecystectomy, tonsillectomy - Vaccination History Hx Tetanus, Diphtheria Vaccination: Yes Hx Influenza Vaccination: No Hx Pneumococcal Vaccination: No - Social History Hx Tobacco Use: Yes - smokes 2 ppd Hx Chewing Tobacco Use: No Hx Alcohol Use: Yes - occ Hx Substance Use: No Hx Substance Use Treatment: No Hx Depression: No Feels Threatened In Home Enviroment: No Feels Threatened In a Relationship: No Hx Physical Abuse: No Hx Emotional Abuse: No Hx Suspected Abuse: No - Female History Hx Last Menstrual Period: 09/09/10 Patient : No Family Medical History - Family History Mother Family History: No Known Living Status: Still Living Hx Family Cancer: Yes Father Family History: Unknown Living Status: Cause of : cancer lungs Hx Family Asthma: Yes Hx Family Hypertension: Yes Hx Family Diabetes: Yes Hx Family Cancer: Yes Physical Exam - Physical Exam General Appearance: Comfortable, No apparent distress - Slept thorough whole exam, Obese, Well Hydrated Cardiovascular/Respiratory: regular rate, rhythm, no M/R/G, normal breath sounds , no respiratory distress Gastrointestinal/Abdominal: normal bowel sounds, non tender, soft, no organomegaly Back Exam: CVA tenderness (L) Extremity Exam: normal range of motion Neurologic: other - Sleeping Skin Exam: normal color, warm/dry Comments: Vital Signs 12/25/16 03:35 Temperature 97.6 F Pulse Rate [ 88 monitor] Respiratory 20 Rate Blood Pressure 105/73 [Left Arm] O2 Sat by Pulse 92 L Oximetry Progress - Progress Progress: 12/25/16 04:11 Patient with Nitrate + urine - will start on Cipro insisting patient needs something for pain - will give Toradol 60mg IM - Results/Orders Results/Orders: Laboratory Tests 12/25/16 03:42 Urine Color [place] H Urine Appearance Clear Urine pH 5.0 Ur Specific [place] 1.020 Urine Protein Negative Urine Glucose (UA) 100 H Urine Ketones Negative Urine Blood Negative Urine Nitrite Positive H Urine Bilirubin Negative Urine Urobilinogen 1.0 Ur Leukocyte Esterase Negative Urine RBC 0-1 Urine WBC 0-1 Ur Epithelial Cells 3-5 Urine Bacteria Rare Departure - Departure Clinical Impression: Pyelonephritis Time of Disposition: 04:16 Disposition: Discharge to Home or Self Care Condition: Good Departure Forms: ED Discharge - Pt. Copy, Patient Portal Self Enrollment Instructions: DI for Kidney Infection Diet: resume usual diet - Increase water intake Activity: increase activity as tolerated Referrals: GLADIS EPPS,RASHAD Rascon [Primary Care Provider] - 1-2 Weeks Prescriptions: Ciprofloxacin [Cipro] 500 mg PO BID #14 tab Home Medications: Ambulatory Orders Ziprasidone HCl [Geodon] 80 mg PO BID 09/25/14 Alprazolam [Xanax] 2 mg PO QID 09/19/15 Celecoxib 200 mg PO BID 01/29/16 QUEtiapine FUMARATE [Seroquel] 400 mg PO BEDTIME PRN 01/29/16 Thyroid [Nature-Throid] 32.5 mg PO DAILY 07/16/16 Triamterene & Hydrochlorothiaz [Maxzide-25 37.5-25 mg] 1 tab PO DAILY 07/16/16 Wgytojpeipgvd-Wluk-Wjxngxtvgc [Fioricet] 1 ea PO Q8H PRN #21 tab 11/16/16 Mometasone Furoate-Formoterol [Dulera 100-5 Mcg/Act] 1 aer IN PRN 11/16/16 Pantoprazole Tablet [Protonix] 40 mg PO ACBK 11/16/16 Promethazine Tab [Phenergan Tablet] 25 mg PO PRN 11/16/16 Terbinafine HCl [Lamisil] 100 mg PO BEDTIME 11/16/16 Ciprofloxacin [Cipro] 500 mg PO BID #14 tab 10/16/17 Gabapentin 100 mg PO QID 12/25/16 Lamotrigine [Lamictal] 200 mg PO DAILY 12/25/16
[2016-12-25] MEDS ORDERED: KETOROLAC TROMETHAMINE INJ 60 MG/2 ML VIAL IM ONE (04:06)
[2016-12-25] MEDS ORDERED: CIPROFLOXACIN 500 MG TAB PO ONE (04:12)
[2016-12-25] MEDS ORDERED: CIPROFLOXACIN 500 MG TAB ONE (04:13)
== END 2016-12-25 04:23 | disposition home or self-care (01) ==
LOC: ER 03:23
DX: N12 Tubulo-interstitial nephritis, not specified as acute or chronic (principal); F17.200 Nicotine dependence, unspecified, uncomplicated; K21.9 Gastro-esophageal reflux disease without esophagitis; E07.9 Disorder of thyroid, unspecified; Z88.6 Allergy status to analgesic agent
CPT/HCPCS: 81001; 87086; J1885

== ENCOUNTER 2017-05-31 19:38 | Emergency (ER) | payer BC, OTHER ==
[2017-05-31] MEDS ORDERED: predniSONE 20 MG TAB PO ONE (20:10)
[2017-05-31] MEDS ORDERED: IPRATROPIUM/ALBUTEROL 3 ML VIAL NEB ONE (20:10)
[2017-05-31] MEDS ORDERED: levoFLOXacin 500 MG TAB PO ONE (20:11)
--- NOTE | 2017-05-31 20:21 | ED.PDOC ---
History of Present Illness - General Chief Complaint: Respiratory Problem Stated Complaint: Chest Congestion Time Seen by Provider: 05/31/17 20:10 Source: patient Exam Limitations: no limitations - History of Present Illness Initial Comments: the patient is a 41-year-old female presenting to the emergency room secondary to cough and a runny nose and a mild sore throat for the last 3-4 days. She does have a history of COPD versus reactive airway disease and has been doing her nebulizer treatments every 4 hours. she has had a mild sore throat. She has had a mild runny nose. Cough has been minimally productive. She does feel mildly short of breath. She does have scattered wheezes. She does have some rales at the right lung base. Air movement is still good. Severity: moderate Improving Factors: nothing Worsening Factors: nothing Associated Symptoms: cough, fever/chills, malaise, shortness of breath Allergies/Adverse Reactions: Allergies Codeine Adverse Reaction (Verified 12/25/16 03:42) makes her feel nauseated adhesive Allergy (Intermediate, Uncoded 12/25/16 03:42) Other Scarred her after lumpectomy Home Medications: Ambulatory Orders Ziprasidone HCl [Geodon] 80 mg PO BID 09/25/14 Alprazolam [Xanax] 2 mg PO QID 09/19/15 Celecoxib 200 mg PO BID 01/29/16 QUEtiapine FUMARATE [Seroquel] 400 mg PO BEDTIME PRN 01/29/16 Thyroid [Nature-Throid] 32.5 mg PO DAILY 07/16/16 Triamterene & Hydrochlorothiaz [Maxzide-25 37.5-25 mg] 1 tab PO DAILY 07/16/16 Nyolbmbkmtgxr-Mwlk-Ssysgxoneu [Fioricet] 1 ea PO Q8H PRN #21 tab 11/16/16 Mometasone Furoate-Formoterol [Dulera 100-5 Mcg/Act] 1 aer IN PRN 11/16/16 Pantoprazole Tablet [Protonix] 40 mg PO ACBK 11/16/16 Promethazine Tab [Phenergan Tablet] 25 mg PO PRN 11/16/16 Terbinafine HCl [Lamisil] 100 mg PO BEDTIME 11/16/16 Ciprofloxacin [Cipro] 500 mg PO BID #14 tab 12/25/16 Gabapentin 100 mg PO QID 12/25/16 Lamotrigine [Lamictal] 200 mg PO DAILY 12/25/16 Montelukast [Singulair] 10 mg PO DAILY #14 tab 05/31/17 levoFLOXacin [Levaquin] 500 mg PO DAILY #5 tab 05/31/17 predniSONE [Prednisone] 20 mg PO DAILY #5 tab 05/31/17 Review of Systems - Review of Systems Constitutional: States: no symptoms reported EENTM: States: nose congestion, throat pain Respiratory: States: cough, short of breath, wheezing Cardiology: States: no symptoms reported Gastrointestinal/Abdominal: States: no symptoms reported Genitourinary: States: no symptoms reported Musculoskeletal: States: no symptoms reported Skin: States: no symptoms reported Neurological: States: no symptoms reported Endocrine: States: no symptoms reported All other Systems: No Change from Baseline Past Medical History (General) - Patient Medical History Hx Seizures: No Hx Stroke: No Hx Dementia: No Hx Asthma: No Hx of COPD: Yes Hx Cardiac Disorders: No Hx Congestive Heart Failure: No Hx Pacemaker: No Hx Hypertension: No Hx Thyroid Disease: Yes Hx Diabetes: No Hx Gastroesophageal Reflux: No Hx Renal Disease: No Hx Cancer: No Hx of HIV: No Hx Hepatitis C: No Hx MRSA: No Surgical History: cholecystectomy, other - Vaccination History Hx Tetanus, Diphtheria Vaccination: No Hx Influenza Vaccination: No - Pt states :"I don't take flu vacc as it makes me have Hx Pneumococcal Vaccination: Yes Immunizations Up to Date: Yes - Social History Hx Tobacco Use: Yes - 1/2 to 3/4 PPD smoker Years Tobacco Use: 20 Cigarettes Packs Per Day: 1 Hx Chewing Tobacco Use: No Hx Alcohol Use: Yes - Rarely Hx Substance Use: No Hx Substance Use Treatment: No Hx Depression: Yes Feels Threatened In Home Enviroment: No Feels Threatened In a Relationship: No Hx Physical Abuse: No Hx Emotional Abuse: No Hx Suspected Abuse: No - Activities of Daily Living Hospice Agency (if applicable):: None - Female History Patient is a Female of Child Bearing Age (10 -59 yrs old): Yes Hx Last Menstrual Period: 09/09/10 Patient : No Family Medical History - Family History Mother Family History: No Known Living Status: Still Living Hx Family Asthma: No Hx Family Congestive Heart Failure: No Hx Family Hypertension: No Hx Family Stroke: No Hx Cardiac Disease: No Hx Family Diabetes: No Hx Family Cancer: Yes Hx Family;Other: Skin cancer Father Family History: Unknown Living Status: Cause of : cancer lungs Hx Family Asthma: Yes Hx Family Congestive Heart Failure: Yes Hx Family Hypertension: Yes Hx Family Stroke: No Hx Cardiac Disease: Yes Hx Family Diabetes: Yes Hx Family Cancer: Yes Physical Exam - Physical Exam General Appearance: Alert, Comfortable, No apparent distress Eye Exam: bilateral normal Ears, Nose, Throat: nasal congestion, pharyngeal erythema - mild Neck: full range of motion, supple Respiratory: chest non-tender, no respiratory distress, no accessory muscle use , rales - right lower lobe, wheezing - diffuse Cardiovascular/Chest: normal peripheral pulses, no edema, tachycardia - mild as associated withher breathing treatments Peripheral Pulses: radial,right: 2+, radial,left: 2+, dorsalis pedis,right: 2+, dorsalis pedis,left: 2+ Gastrointestinal/Abdominal: non tender, soft Rectal Exam: deferred Back Exam: normal inspection, no CVA tenderness Extremity: non-tender, normal inspection, no pedal edema, normal capillary refill 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 she is to continue her breathing treatments every 4 hours. she will be written for Singulair, prednisone and Levaquin. She needs to follow up with her primary care doctor tomorrow afternoon before the weekend for reevaluation. ER warnings were given for any worsening. First dose is given here. The patient appears clinically stable at this time. Departure - Departure Clinical Impression: Bronchitis, acute, with bronchospasm Reactive airway disease Qualifiers: Asthma severity: unspecified severity Asthma complication type: with acute exacerbation Qualified Code(s): J45.901 - Unspecified asthma with (acute) exacerbation Disposition: Discharge to Home or Self Care Condition: Fair Departure Forms: ED Discharge - Pt. Copy, Patient Portal Self Enrollment Instructions: DI for Asthma -- Adult Diet: regular diet Activity: increase activity as tolerated Referrals: GLADIS EPPS,RASHAD Rascon [Primary Care Provider] - 1-2 Days Prescriptions: levoFLOXacin [Levaquin] 500 mg PO DAILY #5 tab Montelukast [Singulair] 10 mg PO DAILY #14 tab predniSONE [Prednisone] 20 mg PO DAILY #5 tab Home Medications: Ambulatory Orders Ziprasidone HCl [Geodon] 80 mg PO BID 09/25/14 Alprazolam [Xanax] 2 mg PO QID 09/19/15 Celecoxib 200 mg PO BID 01/29/16 QUEtiapine FUMARATE [Seroquel] 400 mg PO BEDTIME PRN 01/29/16 Thyroid [Nature-Throid] 32.5 mg PO DAILY 07/16/16 Triamterene & Hydrochlorothiaz [Maxzide-25 37.5-25 mg] 1 tab PO DAILY 07/16/16 Orwwsylnlipou-Blcv-Vygztplrcs [Fioricet] 1 ea PO Q8H PRN #21 tab 11/16/16 Mometasone Furoate-Formoterol [Dulera 100-5 Mcg/Act] 1 aer IN PRN 11/16/16 Pantoprazole Tablet [Protonix] 40 mg PO ACBK 11/16/16 Promethazine Tab [Phenergan Tablet] 25 mg PO PRN 11/16/16 Terbinafine HCl [Lamisil] 100 mg PO BEDTIME 11/16/16 Ciprofloxacin [Cipro] 500 mg PO BID #14 tab 12/25/16 Gabapentin 100 mg PO QID 12/25/16 Lamotrigine [Lamictal] 200 mg PO DAILY 12/25/16 Montelukast [Singulair] 10 mg PO DAILY #14 tab 05/31/17 levoFLOXacin [Levaquin] 500 mg PO DAILY #5 tab 05/31/17 predniSONE [Prednisone] 20 mg PO DAILY #5 tab 05/31/17 Additional Instructions: the patient is a 41-year-old female presenting to emergency room with what appears to be a reactive airway exacerbaton with at least a mild bronchitis on board. she is to continue her breathing treatments every 4 hours. she will be written for Singulair, prednisone and Levaquin. She needs to follow up with her primary care doctor tomorrow afternoon before the weekend for reevaluation. ER warnings were given for any worsening. First dose is given here. The patient appears clinically stable at this time.
[2017-05-31 20:52] VITALS: BP 108/74; TEMP 98.3; O2SAT 98
== END 2017-05-31 20:49 | disposition home or self-care (01) ==
LOC: ER 19:38
DX: J44.1 Chronic obstructive pulmonary disease with (acute) exacerbation (principal); J44.0 Chronic obstructive pulmonary disease with (acute) lower respiratory infection; J45.901 Unspecified asthma with (acute) exacerbation; J20.9 Acute bronchitis, unspecified; E07.9 Disorder of thyroid, unspecified; F17.200 Nicotine dependence, unspecified, uncomplicated; Z79.899 Other long term (current) drug therapy
CPT/HCPCS: 94640; J7512; J7620

== ENCOUNTER 2018-02-17 11:48 | Emergency (ER) | payer BC, OTHER ==
[2018-02-17] MEDS ORDERED: ACETAMINOPHEN-CAFF-BUTALBITAL 1 EA TAB PO ONE (12:08)
--- NOTE | 2018-02-17 12:51 | RAD ---
PROCEDURE: Knee,Right Complete Clinical History: fall with knee pain over patella Indication: Same as above. Comparison: None . Technique: Three Views of the right knee were done. Findings: There is no evidence of acute fractures or dislocations involving the bones of the right knee joint. There is no evidence of any suprapatellar joint effusion. There is no evidence of any periosteal reactions. The femorotibial and patellofemoral joint spaces are well-maintained. There is no chondrocalcinosis of the menisci or any osteochondral defects. The soft tissues are radiographically unremarkable. There is no visualization of any radiopaque foreign bodies in the evaluated soft tissues. Impression: Negative for acute bony trauma involving the right knee Place of interpretation: [id number]. Electronically signed by: Allan Ferrer MD 02/17/2018 12:49 PM [facility] Workstation: [id number]
--- NOTE | 2018-02-17 13:03 | ED.PDOC ---
History of Present Illness - General Chief Complaint: Lower Extremity Injury Time Seen by Provider: 02/17/18 12:02 Source: patient, family Exam Limitations: no limitations - History of Present Illness Initial Comments: the patient's 43-year-old female that twisted her knee and fell on it 2-3 days ago her head she has a mild abrasion over the kneecap. Most of the pain is over the kneecap. No evidence of any infection. No pain proximal and distal. She has been ambulatory on the last couple of days. Ligamentous testing reveals no evidence of any obvious full-thickness tears. No gross deformity. Allergies/Adverse Reactions: Allergies Codeine Adverse Reaction (Verified 12/25/16 03:42) makes her feel nauseated adhesive Allergy (Intermediate, Uncoded 12/25/16 03:42) Other Scarred her after lumpectomy Home Medications: Ambulatory Orders Alprazolam [Xanax] 2 mg PO QID 09/19/15 Celecoxib 200 mg PO BID 01/29/16 Triamterene & Hydrochlorothiaz [Maxzide-25 37.5-25 mg] 1 tab PO DAILY 07/16/16 Mometasone Furoate-Formoterol [Dulera 100-5 Mcg/Act] 1 aer IN DAILY 11/16/16 Pantoprazole Tablet [Protonix] 40 mg PO ACBK 11/16/16 Gabapentin 300 mg PO TID 12/25/16 Lamotrigine [Lamictal] 400 mg PO BEDTIME 12/25/16 Imsgyzqjanxbv-Ikqt-Jnynwdtnuj [Fioricet] 1 ea PO Q8H PRN #21 tab 02/17/18 Cariprazine HCl [Vraylar] 6 mg PO BEDTIME 02/17/18 Phentermine HCl 37.5 mg PO QAM 02/17/18 Thyroid [Automotive Engineering Technician Thyroid 30] 30 mg PO QAM 02/17/18 Tramadol HCl [Tramadol HCl] 50 mg PO Q6H PRN 02/17/18 Vortioxetine HBr [Trintellix] 5 mg PO QAM 02/17/18 Review of Systems - Review of Systems Constitutional: States: no symptoms reported EENTM: States: no symptoms reported Respiratory: States: no symptoms reported Cardiology: States: no symptoms reported Gastrointestinal/Abdominal: States: no symptoms reported Genitourinary: States: no symptoms reported Musculoskeletal: States: see HPI Skin: States: see HPI Neurological: States: no symptoms reported Endocrine: States: no symptoms reported Hematologic/Lymphatic: States: no symptoms reported All other Systems: No Change from Baseline Past Medical History (General) - Patient Medical History Hx Seizures: No Hx Stroke: No Hx Dementia: No Hx Asthma: No Hx of COPD: Yes Hx Cardiac Disorders: No Hx Congestive Heart Failure: No Hx Pacemaker: No Hx Hypertension: No Hx Thyroid Disease: Yes Hx Diabetes: No Hx Gastroesophageal Reflux: No Hx Renal Disease: No Hx Cancer: No Hx of HIV: No Hx Hepatitis C: No Hx MRSA: No Surgical History: no surgical history - Vaccination History Hx Tetanus, Diphtheria Vaccination: No Hx Influenza Vaccination: No - Pt states :"I don't take flu vacc as it makes me have Hx Pneumococcal Vaccination: Yes - Social History Hx Tobacco Use: Yes - 1/2 to 3/4 PPD smoker Hx Chewing Tobacco Use: No Hx Alcohol Use: Yes - Rarely Hx Substance Use: No Hx Substance Use Treatment: No Hx Depression: Yes Hx Physical Abuse: No Hx Emotional Abuse: No Hx Suspected Abuse: No - Female History Hx Last Menstrual Period: 09/09/10 Patient : No Family Medical History - Family History Mother Family History: No Known Living Status: Still Living Hx Family Asthma: No Hx Family Congestive Heart Failure: No Hx Family Hypertension: No Hx Family Stroke: No Hx Cardiac Disease: No Hx Family Diabetes: No Hx Family Cancer: Yes Hx Family;Other: Skin cancer Father Family History: Unknown Living Status: Cause of : cancer lungs Hx Family Asthma: Yes Hx Family Congestive Heart Failure: Yes Hx Family Hypertension: Yes Hx Family Stroke: No Hx Cardiac Disease: Yes Hx Family Diabetes: Yes Hx Family Cancer: Yes Physical Exam - Physical Exam General Appearance: Alert, Comfortable, No apparent distress Eye Exam: bilateral normal Ears, Nose, Throat: hearing grossly normal, normal pharynx Neck: full range of motion, supple Respiratory: no respiratory distress, no accessory muscle use Cardiovascular/Chest: normal peripheral pulses, no edema Peripheral Pulses: dorsalis pedis,right: 2+, dorsalis pedis,left: 2+, posterior tibialis,right: 2+, posterior tibialis,left: 2+ Gastrointestinal/Abdominal: non tender, soft Rectal Exam: deferred Extremity: normal range of motion, no pedal edema, no calf tenderness, normal capillary refill, other - ee history of present illness Neurologic: tester compressed gases II-XII nml as tested, alert, normal mood/affect, oriented x 3 Skin Exam: normal color - abrasion over the right knee healing well Comments: Vital Signs - 24 hr 02/17/18 12:20 Pulse Rate [ 87 right brahcial] Respiratory 16 Rate Blood Pressure 116/76 [left brachial] O2 Sat by Pulse 97 Oximetry Progress - Progress Progress: 02/17/18 13:02 the patient is a 42-year-old female presented to emergency room secondary to pain over her right knee Since a fall a couple of days ago. X-ray of the knee shows no evidence of any fracture or dislocation. The patient can take ibuprofen for pain and will also be written for some Fioricet for as needed use. A knee immobilizer will be put in place until she feels that she can ambulate safely without it. She needs to follow-up with her primary care doctor later this coming week. ER warnings were given. Departure - Departure Clinical Impression: Sprain of knee Qualifiers: Encounter type: initial encounter Involved ligament of knee: unspecified ligament Laterality: right Qualified Code(s): S83.91XA - Sprain of unspecified site of right knee, initial encounter Disposition: Discharge to Home or Self Care Condition: Fair Departure Forms: ED Discharge - Pt. Copy, Patient Portal Self Enrollment Diet: regular diet Activity: increase activity as tolerated Referrals: GLADIS EPPS,RASHAD Rascon [Primary Care Provider] - 1-2 Weeks Prescriptions: Dfyegppxzniqj-Juzj-Tkiflddxev [Fioricet] 1 ea PO Q8H PRN #21 tab PRN Reason: Pain Home Medications: Ambulatory Orders Alprazolam [Xanax] 2 mg PO QID 09/19/15 Celecoxib 200 mg PO BID 01/29/16 Triamterene & Hydrochlorothiaz [Maxzide-25 37.5-25 mg] 1 tab PO DAILY 07/16/16 Mometasone Furoate-Formoterol [Dulera 100-5 Mcg/Act] 1 aer IN DAILY 11/16/16 Pantoprazole Tablet [Protonix] 40 mg PO ACBK 11/16/16 Gabapentin 300 mg PO TID 12/25/16 Lamotrigine [Lamictal] 400 mg PO BEDTIME 12/25/16 Fenbmhglhhdmn-Aulo-Vbxqhoginn [Fioricet] 1 ea PO Q8H PRN #21 tab 02/17/18 Cariprazine HCl [Vraylar] 6 mg PO BEDTIME 02/17/18 Phentermine HCl 37.5 mg PO QAM 02/17/18 Thyroid [Automotive Engineering Technician Thyroid 30] 30 mg PO QAM 02/17/18 Tramadol HCl [Tramadol HCl] 50 mg PO Q6H PRN 02/17/18 Vortioxetine HBr [Trintellix] 5 mg PO QAM 02/17/18 Additional Instructions: the patient is a 42-year-old female presented to emergency room secondary to pain over her right knee Since a fall a couple of days ago. X-ray of the knee shows no evidence of any fracture or dislocation. The patient can take ibuprofen for pain and will also be written for some Fioricet for as needed use. A knee immobilizer will be put in place until she feels that she can ambulate safely without it. She needs to follow-up with her primary care doctor later this coming week. ER warnings were given.
[2018-02-17] MEDS ORDERED: KETOROLAC TROMETHAMINE INJ 30 MG/ML VIAL IM ONE (13:05)
[2018-02-17 13:15] VITALS: BP 112/76; O2SAT 94
== END 2018-02-17 13:40 | disposition home or self-care (01) ==
LOC: ER 11:48
DX: S83.91XA Sprain of unspecified site of right knee, initial encounter (principal); S80.811A Abrasion, right lower leg, initial encounter; J44.9 Chronic obstructive pulmonary disease, unspecified; F32.9 Major depressive disorder, single episode, unspecified; E07.9 Disorder of thyroid, unspecified; F17.210 Nicotine dependence, cigarettes, uncomplicated; Z79.899 Other long term (current) drug therapy; Z88.5 Allergy status to narcotic agent; W18.39XA Other fall on same level, initial encounter; Y92.9 Unspecified place or not applicable
CPT/HCPCS: 73562; J1885

== ENCOUNTER → 2018-04-15 | Outpatient (CLI) | payer MEDICARE, OTHER ==
--- NOTE | 2018-04-15 20:04 | US ---
EXAM DESCRIPTION: Breast,Bilateral: Ultrasound CLINICAL HISTORY: 42 yearsFemaleBREAST LUMPS COMPARISON: Digital diagnostic tomosynthesis lateral breasts on this visit. TECHNIQUE: Transcutaneous scanning of the bilateral breast utilizing randhawa-scale and Doppler modes. Scanning performed by the quality assurance supervisor and Dr. Fontaine. 2 regions were indicated by skin markers on each breast where patient palpates lumps. Patient also palpates lumps at other areas bilaterally, and also right axilla. These sites were indicated to the quality assurance supervisor by the patient. FINDINGS: Scanning of the right breast at the 12:00 to 1:00 position middle third and posterior third. Predominantly fatty echotexture with minimal fibroglandular tissues. Scanning of the upper inner quadrant, upper outer quadrant, lower outer quadrant, and lower inner quadrant of the right breast. Also scanning of the right axilla. No dominant solid mass or distinct cyst seen in the right breast or axilla.. No parenchymal edema or large calcifications. No overlying skin changes. Normal vascularity. Scanning of the left breast in all 4 quadrants. The breast is predominantly fatty echotexture with minimal fibroglandular elements. No dominant solid mass or distinct cyst. No parenchymal edema or large calcifications. No overlying skin changes. Normal vascularity IMPRESSION: 1. Bi-Rads Category 2: Benign. 2. Please refer to bilateral digital diagnostic breast tomosynthesis and report on this visit. The FINDINGS and the FOLLOW-UP plan were reviewed in person with the patient after the examination. Written communication explaining the IMPRESSION and FOLLOW-UP will be mailed to the patient and referring care provider. Electronically signed by: Kiet Fontaine MD 04/15/2018 8:02 PM [facility]
--- NOTE | 2018-04-16 17:49 | MAM ---
EXAM DESCRIPTION: 3D Diagnostic, Bilateral: Digital Mammography CLINICAL HISTORY: 42 yearsFemaleBREAST LUMP . Bilateral breast lumps. No personal history of breast cancer. Remote family history of breast cancer. Mother with ovarian cancer. Childbirth. Uterine ablation. Prior right breast biopsy.. Lifetime risk of developing breast cancer (Tyrer-Cuzick model) percentage is 39.6. COMPARISON: 2-D digital screening bilateral mammography 05/15/2014.. Bilateral targeted breast ultrasound included with this examination.. TECHNIQUE: Bilateral CC LM MLO projection full-field images, digital mammographic tomosynthesis technique. Bilateral 2-D digital full-field MLO images. CAD not utilized. FINDINGS: The breast parenchymal density pattern is: Scattered areas of fibroglandular density. No skin thickening or nipple retraction bilateral skin markers are noted on the upper breast bilaterally posterior third of right breast and middle third of left breast. Left axillary lymph nodes. Bilateral solitary coarse microcalcifications. No mass density or focal asymmetry seen bilaterally or the skin markers are located. Breast parenchyma has a similar appearance to the prior 2-D study in 2014. Ultrasound: Scanning of the right breast at the 12:00 to 1:00 position middle third and posterior third. Predominantly fatty echotexture with minimal fibroglandular tissues. Scanning of the upper inner quadrant, upper outer quadrant, lower outer quadrant, and lower inner quadrant of the right breast. Also scanning of the right axilla. No dominant solid mass or distinct cyst seen in the right breast or axilla.. No parenchymal edema or large calcifications. No overlying skin changes. Normal vascularity. Scanning of the left breast in all 4 quadrants. The breast is predominantly fatty echotexture with minimal fibroglandular elements. No dominant solid mass or distinct cyst. No parenchymal edema or large calcifications. No overlying skin changes. Normal vascularity. IMPRESSION: Benign exam. BIRAD CATEGORY: 2 BENIGN FINDINGS. RECOMMENDATIONS: FOLLOW UP: Routine digital bilateral mammographic screening, one year interval from April 2018. Written communication explaining the IMPRESSION and follow-up, will be mailed to the patient and referring health care provider. According to the [employer], yearly mammograms are recommended starting at age 40 and continuing as long as a woman is in good health. Any breast change noted on a breast self-exam should be reported promptly to the patient's healthcare provider. Breast MRI is recommended for women with an approximately 20-25% or greater lifetime risk of breast cancer, including women with a strong family history of breast or ovarian cancer and women who have been treated for Hodgkin's disease. A negative mammographic report should not delay tissue diagnosis in patients with significant clinical history or physical findings. Extremely dense breast tissue limits the sensitivity of digital mammography. Electronically signed by: Kiet Fontaine MD 04/16/2018 5:47 PM [facility]
== END ==
LOC: MAMMO 09:00
PROVIDERS: ATTEND Nurse Practitioner Family
DX: N63.11 Unspecified lump in the right breast, upper outer quadrant (principal); N63.21 Unspecified lump in the left breast, upper outer quadrant; R92.1 Mammographic calcification found on diagnostic imaging of breast
CPT/HCPCS: 76641; 77066; G0279

== ENCOUNTER 2018-05-05 01:22 | Emergency (ER) | payer MEDICARE, OTHER ==
[2018-05-05] MEDS ORDERED: KETOROLAC TROMETHAMINE INJ 30 MG/ML VIAL IM ONE (01:29)
[2018-05-05] MEDS ORDERED: ALUM & MAG HYDROX-SIMETHICONE 30 ML, LIDOCAINE VISCOUS 2% 15 ML PO ONE ×2 (01:29)
[2018-05-05] MEDS ORDERED: IPRATROPIUM/ALBUTEROL 3 ML VIAL NEB ONE (01:30)
[2018-05-05] MEDS ORDERED: ALUM & MAG HYDROX-SIMETHICONE 30 ML UD ONE (01:30)
[2018-05-05] MEDS ORDERED: LIDOCAINE HCL 2% (MOUTH-THROAT) 15 ML UD ONE (01:30)
--- NOTE | 2018-05-05 01:33 | ED.PDOC ---
History of Present Illness - General Time Seen by Provider: 05/05/18 01:22 Source: patient Exam Limitations: no limitations - History of Present Illness Initial Comments: The patient is a 42-year-old female complaining of chest pain. Apparently the patient has had stabbing sharp type chest pain for the last 4 days. It is worse with movement. It is worse with palpation. She has some obvious muscle spasm over the medial aspect of bilateral pectoralis muscles. No obvious bruising. No crepitus. She does have bilateral wheezing. She has had a cough that is largely nonproductive. She does have breathing treatments but has not been doing them. No definite fever. Timing/Duration: other - 4 days Severity: moderate Improving Factors: nothing Worsening Factors: nothing Associated Symptoms: chest pain - chest wall pain, cough Allergies/Adverse Reactions: Allergies Codeine Adverse Reaction (Verified 12/25/16 03:42) makes her feel nauseated adhesive Allergy (Intermediate, Uncoded 12/25/16 03:42) Other Scarred her after lumpectomy Home Medications: Ambulatory Orders Alprazolam [Xanax] 2 mg PO QID 09/19/15 Celecoxib 200 mg PO BID 01/29/16 Triamterene & Hydrochlorothiaz [Maxzide-25 37.5-25 mg] 1 tab PO DAILY 07/16/16 Mometasone Furoate-Formoterol [Dulera 100-5 Mcg/Act] 1 aer IN DAILY 11/16/16 Pantoprazole Tablet [Protonix] 40 mg PO ACBK 11/16/16 Gabapentin 300 mg PO TID 12/25/16 Lamotrigine [Lamictal] 400 mg PO BEDTIME 12/25/16 Prslckecyebpo-Yhmr-Fwkltwchkt [Fioricet] 1 ea PO Q8H PRN #21 tab 02/17/18 Cariprazine HCl [Vraylar] 6 mg PO BEDTIME 02/17/18 Phentermine HCl 37.5 mg PO QAM 02/17/18 Thyroid [Oncology Transplant Network Manager Thyroid 30] 30 mg PO QAM 02/17/18 Tramadol HCl 50 mg PO Q6H PRN 02/17/18 Vortioxetine HBr [Trintellix] 5 mg PO QAM 02/17/18 Cyclobenzaprine HCl [Flexeril] 5 mg PO TID PRN #5 tab 05/05/18 Review of Systems - Review of Systems Constitutional: States: malaise EENTM: States: nose congestion Respiratory: States: cough Cardiology: States: chest pain - chest wall pain Gastrointestinal/Abdominal: States: no symptoms reported Genitourinary: States: no symptoms reported Musculoskeletal: States: see HPI Skin: States: no symptoms reported Neurological: States: other - the patient is drowsy. She is obviously had some sleeping medications tonight Endocrine: States: no symptoms reported All other Systems: No Change from Baseline Past Medical History (General) - Patient Medical History Hx Seizures: No Hx Stroke: No Hx Dementia: No Hx Asthma: No Hx of COPD: Yes Hx Cardiac Disorders: No Hx Congestive Heart Failure: No Hx Pacemaker: No Hx Hypertension: No Hx Thyroid Disease: Yes Hx Diabetes: No Hx Gastroesophageal Reflux: No Hx Renal Disease: No Hx Cancer: No Hx of HIV: No Hx Hepatitis C: No Hx MRSA: No - Vaccination History Hx Tetanus, Diphtheria Vaccination: No Hx Influenza Vaccination: No - Pt states :"I don't take flu vacc as it makes me have Hx Pneumococcal Vaccination: Yes - Social History Hx Tobacco Use: Yes - 1/2 to 3/4 PPD smoker Hx Chewing Tobacco Use: No Hx Alcohol Use: Yes - Rarely Hx Substance Use: No Hx Substance Use Treatment: No Hx Depression: Yes Hx Physical Abuse: No Hx Emotional Abuse: No Hx Suspected Abuse: No - Female History Hx Last Menstrual Period: 09/09/10 Patient : No Family Medical History - Family History Mother Family History: No Known Living Status: Still Living Hx Family Asthma: No Hx Family Congestive Heart Failure: No Hx Family Hypertension: No Hx Family Stroke: No Hx Cardiac Disease: No Hx Family Diabetes: No Hx Family Cancer: Yes Hx Family;Other: Skin cancer Father Family History: Unknown Living Status: Cause of : cancer lungs Hx Family Asthma: Yes Hx Family Congestive Heart Failure: Yes Hx Family Hypertension: Yes Hx Family Stroke: No Hx Cardiac Disease: Yes Hx Family Diabetes: Yes Hx Family Cancer: Yes Physical Exam - Physical Exam General Appearance: Comfortable, No apparent distress, Other - drowsy Eye Exam: bilateral normal Ears, Nose, Throat: hearing grossly normal, nasal congestion Neck: non-tender, full range of motion Respiratory: no respiratory distress, no accessory muscle use, rhonchi, wheezing, other - chest wall pain bilaterally anteriorly Cardiovascular/Chest: normal peripheral pulses, regular rate, rhythm, no edema Peripheral Pulses: radial,right: 2+, radial,left: 2+ Gastrointestinal/Abdominal: non tender, soft Rectal Exam: deferred Back Exam: no CVA tenderness, no vertebral tenderness Extremity: non-tender, normal inspection, no pedal edema, normal capillary refill 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 as tested, normal mood/affect - drowsy, oriented x 3 Skin Exam: normal color Comments: Vital Signs - 24 hr 05/05/18 05/05/18 05/05/18 01:34 02:59 03:00 Temperature 98.0 F Pulse Rate [ 104 H 91 H 90 monitor] Respiratory 22 18 16 Rate Blood Pressure 111/86 100/65 104/64 [ra] O2 Sat by Pulse 96 97 96 Oximetry 05/05/18 04:00 Temperature Pulse Rate [ 88 monitor] Respiratory 18 Rate Blood Pressure 110/60 [ra] O2 Sat by Pulse 94 L Oximetry Progress - Progress Progress: 05/05/18 04:56 the patient's a 42-year-old female presenting to the emergency room with bilateral anterior chest wall pain that equates essentially to pectoralis muscle spasm. She is additionally having some left calf muscle spasm. The patient does have moderate dehydration and moderate hypokalemia as the likely sources. She was given oral potassium here and a liter of IV fluids as well as a small dose of muscle relaxer. She is feeling better. Additionally she does have a small COPD exacerbation and needs to stop smoking. She was given 1 dose of oral prednisone and a breathing treatment here. No respiratory distress. She needs to follow back up with her primary care doctor. She'll be given 5 tablets of Flexeril for as needed use as a muscle relaxer. I would recommend that she hold her diuretic for at least 2 weeks to see if she is still needing it. ER warnings were given for any worsening. - Results/Orders Results/Orders: EKG shows normal sinus rhythm at 95 bpm. Borderline QT interval. Normal axis. Mild right bundle branch block. Slow R-wave progression but both the bundle branch block and R-wave progression are old findings. No obvious new ST segment or T-wave changes when compared with EKG from April 2016. Chest x-ray shows no evidence of any acute pathology. Laboratory Tests 05/05/18 05/05/18 01:40 01:40 WBC 10.8 RBC 4.95 Hgb 14.9 Hct 43.5 MCV 87.8 MCH 30.1 MCHC 34.3 RDW 18.9 H Plt Count 189 MPV 9.0 Absolute Neuts (auto) 5.60 Absolute Lymphs (auto) 4.30 H Absolute Monos (auto) 0.60 Absolute Eos (auto) 0.30 Absolute Basos (auto) 0.00 Neutrophils % 51.6 Lymphocytes % 39.5 Monocytes % 5.5 Eosinophils % 3.2 Basophils % 0.2 Sodium 137 Potassium 3.2 L Chloride 102 Carbon Dioxide 25 Anion Gap 13.2 BUN 21 H Creatinine 1.17 BUN/Creatinine Ratio 17.9 Random Glucose 99 Serum Osmolality 276.8 Calcium 8.7 Magnesium 1.9 Total Bilirubin 0.4 AST 37 ALT 31 Alkaline Phosphatase 129 H Creatine Kinase 59 CK-MB (CK-2) 1.3 CK-MB (CK-2) % Not Reportable Troponin I < 0.02 B-Natriuretic Peptide 14.2 Serum Total Protein 6.7 Albumin 3.8 Globulin 2.9 Albumin/Globulin Ratio 1.3 Departure - Departure Clinical Impression: Dehydration, Hypokalemia, Acute chest wall pain, COPD exacerbation Disposition: Discharge to Home or Self Care Condition: Fair Instructions: Muscle Spasms (DC), Hypokalemia (DC), Dehydration, Adult (DC) Diet: diabetic diet Activity: increase activity as tolerated Referrals: GLADIS EPPS,RASHAD Rascon [Primary Care Provider] - 1-2 Weeks Prescriptions: Cyclobenzaprine HCl [Flexeril] 5 mg PO TID PRN #5 tab PRN Reason: Muscle Spasms Home Medications: Ambulatory Orders Alprazolam [Xanax] 2 mg PO QID 09/19/15 Celecoxib 200 mg PO BID 01/29/16 Triamterene & Hydrochlorothiaz [Maxzide-25 37.5-25 mg] 1 tab PO DAILY 07/16/16 Mometasone Furoate-Formoterol [Dulera 100-5 Mcg/Act] 1 aer IN DAILY 11/16/16 Pantoprazole Tablet [Protonix] 40 mg PO ACBK 11/16/16 Gabapentin 300 mg PO TID 12/25/16 Lamotrigine [Lamictal] 400 mg PO BEDTIME 12/25/16 Xgpjvbzablyuq-Ocvf-Opuurfkvii [Fioricet] 1 ea PO Q8H PRN #21 tab 02/17/18 Cariprazine HCl [Vraylar] 6 mg PO BEDTIME 02/17/18 Phentermine HCl 37.5 mg PO QAM 02/17/18 Thyroid [Oncology Transplant Network Manager Thyroid 30] 30 mg PO QAM 02/17/18 Tramadol HCl 50 mg PO Q6H PRN 02/17/18 Vortioxetine HBr [Trintellix] 5 mg PO QAM 02/17/18 Cyclobenzaprine HCl [Flexeril] 5 mg PO TID PRN #5 tab 05/05/18 Additional Instructions: the patient's a 42-year-old female presenting to the emergency room with bilateral anterior chest wall pain that equates essentially to pectoralis muscle spasm. She is additionally having some left calf muscle spasm. The patient does have moderate dehydration and moderate hypokalemia as the likely sources. She was given oral potassium here and a liter of IV fluids as well as a small dose of muscle relaxer. She is feeling better. Additionally she does have a small COPD exacerbation and needs to stop smoking. She was given 1 dose of oral prednisone and a breathing treatment here. No respiratory distress. She needs to follow back up with her primary care doctor. She'll be given 5 tablets of Flexeril for as needed use as a muscle relaxer. I would recommend that she hold her diuretic for at least 2 weeks to see if she is still needing it. ER warnings were given for any worsening.
[2018-05-05 01:38] VITALS: TEMP 98
[2018-05-05] MEDS ORDERED: POTASSIUM CHLORIDE ELIXIR 20 MEQ/15 ML UD PO ONE (02:19)
[2018-05-05] MEDS ORDERED: SODIUM CHLORIDE 0.9% 1000ML 1,000 ML IVS ONE (02:26)
[2018-05-05] MEDS ORDERED: diazePAM 2 MG TAB PO ONE (02:27)
--- NOTE | 2018-05-05 02:41 | RAD ---
CHEST 05/05/2018 CLINICAL HISTORY: Chest pain COMPARISON: Chest 02/01/2016. TECHNIQUE: Frontal and lateral Chest. FINDINGS: [Normal cardiac size. Pulmonary vasculature appears normal. Normal cardiomediastinal contours. Lungs are clear. Pleural spaces are clear. Unremarkable soft tissues.] Cervical thoracic fusion hardware is stable. IMPRESSION: 1. No active chest disease. Electronically signed by: Promise Langford DO 05/05/2018 2:38 AM FOUNDRY TENDER
[2018-05-05 04:53] VITALS: O2SAT 94
[2018-05-05] MEDS ORDERED: predniSONE 20 MG TAB PO ONE (04:54)
[2018-05-05 05:07] VITALS: BP 107/77
== END 2018-05-05 05:07 | disposition home or self-care (01) ==
LOC: ER 01:22
DX: J44.1 Chronic obstructive pulmonary disease with (acute) exacerbation (principal); R07.1 Chest pain on breathing; E86.0 Dehydration; E87.6 Hypokalemia; I45.10 Unspecified right bundle-branch block; E07.9 Disorder of thyroid, unspecified; F17.210 Nicotine dependence, cigarettes, uncomplicated; F32.9 Major depressive disorder, single episode, unspecified; Z79.899 Other long term (current) drug therapy; Z88.5 Allergy status to narcotic agent
CPT/HCPCS: 36415; 71046; 80053; 82550; 82553; 83735; 83880; 84484; 85025; 87502; 93005; 94640; J1885; J7030; J7512; J7620

== ENCOUNTER 2018-07-15 13:55 | Emergency (ER) | payer MEDICARE, OTHER ==
--- NOTE | 2018-07-15 15:05 | ED.PDOC ---
History of Present Illness - General Chief Complaint: Back Pain or Injury Stated Complaint: chronic back pain Time Seen by Provider: 07/15/18 15:03 Source: patient Exam Limitations: no limitations - History of Present Illness Initial Comments: [place] 42 y/o female with history of chronic back pain fort he last 15 years stated that for the last 3 days has worsenig non radiating dull ache for the last 3 days .Denies history of recent fall but has rheumatoid arthritis also had multiple steroid shot on her back for chronic back pain in the past.Take Tramadol stated not working.Had multiple imaging studies on her back in the past Timing/Duration: other - see hpi Quality/Severity: dullness Back Pain Location: lumbar spine Back Pain Radiation: other - none Method of Injury/Prior Injury: other - NO INJURY Improving Factors: rest Worsening Factors: movement Allergies/Adverse Reactions: Allergies Codeine Adverse Reaction (Verified 07/15/18 14:31) makes her feel nauseated adhesive Allergy (Intermediate, Uncoded 07/15/18 14:31) Other Scarred her after lumpectomy Home Medications: Ambulatory Orders Alprazolam [Xanax] 2 mg PO QID 09/19/15 Celecoxib 200 mg PO BID 01/29/16 Triamterene & Hydrochlorothiaz [Maxzide-25 37.5-25 mg] 1 tab PO DAILY 07/16/16 Mometasone Furoate-Formoterol [Dulera 100-5 Mcg/Act] 1 aer IN DAILY 11/16/16 Pantoprazole Tablet [Protonix] 40 mg PO ACBK 11/16/16 Gabapentin 300 mg PO TID 12/25/16 Lamotrigine [Lamictal] 400 mg PO BEDTIME 12/25/16 [place]jymvqmw-Mpqv-Pjhqumjflq [Fioricet] 1 ea PO Q8H PRN #21 tab 02/17/18 Cariprazine HCl [Vraylar] 6 mg PO BEDTIME 02/17/18 Phentermine HCl 37.5 mg PO QAM 02/17/18 Thyroid [Dining Room Server Thyroid 30] 30 mg PO QAM 02/17/18 Tramadol HCl 50 mg PO Q6H PRN 02/17/18 Vortioxetine HBr [Trintellix] 5 mg PO QAM 02/17/18 Cyclobenzaprine HCl [Flexeril] 5 mg PO TID PRN #5 tab 05/05/18 Acetaminophen W/ Codeine [Tylenol W/ CODEINE #3] 1 ea PO TID PRN #10 07/15/18 Carisoprodol [Soma] 250 mg PO TID PRN #10 tab 07/15/18 Review of Systems - Review of Systems Constitutional: States: no symptoms reported EENTM: States: no symptoms reported Respiratory: States: no symptoms reported Cardiology: States: no symptoms reported Gastrointestinal/Abdominal: States: no symptoms reported Genitourinary: States: no symptoms reported Musculoskeletal: States: back pain - chronic Skin: States: no symptoms reported Neurological: States: no symptoms reported Past Medical History (General) - Patient Medical History Hx Seizures: No Hx Stroke: No Hx Dementia: No Hx Asthma: No Hx of COPD: Yes Hx Cardiac Disorders: No Hx Congestive Heart Failure: No Hx Pacemaker: No Hx Hypertension: No Hx Thyroid Disease: Yes Hx Diabetes: No Hx Gastroesophageal Reflux: No Hx Renal Disease: No Hx Cancer: No Hx of HIV: No Hx Hepatitis C: No Hx MRSA: No Hx Other PMH: Yes - rheumatoid arthritis ,gout Surgical History: cholecystectomy, other - c-spine,uterine ablation, - Vaccination History Hx Tetanus, Diphtheria Vaccination: Yes Hx Influenza Vaccination: No Hx Pneumococcal Vaccination: No - Social History Hx Tobacco Use: Yes Hx Chewing Tobacco Use: No Hx Alcohol Use: No Hx Substance Use: No Hx Substance Use Treatment: No Hx Depression: No Hx Physical Abuse: No Hx Emotional Abuse: No Hx Suspected Abuse: No - Female History Hx Last Menstrual Period: 09/09/10 Patient : No Family Medical History - Family History Mother Family History: No Known Living Status: Still Living Hx Family Asthma: No Hx Family Congestive Heart Failure: No Hx Family Hypertension: No Hx Family Stroke: No Hx Cardiac Disease: No Hx Family Diabetes: No Hx Family Cancer: Yes Hx Family;Other: Skin cancer;uterine cancer Father Family History: Unknown Living Status: Cause of : cancer lungs Hx Family Asthma: Yes Hx Family Congestive Heart Failure: Yes Hx Family Hypertension: Yes Hx Family Stroke: No Hx Cardiac Disease: Yes Hx Family Diabetes: Yes Hx Family Cancer: Yes Physical Exam - Physical Exam General Appearance: Alert, Anxious, No apparent distress Eyes, Ears, Nose, Throat Exam: PERRL/EOMI, normal ENT inspection Neck Exam: non-tender, full range of motion, normal alignment, normal inspection Cardiovascular/Respiratory: regular rate, rhythm, no M/R/G, normal peripheral pulses, no JVD Peripheral Pulses: radial,right: 2+, radial,left: 2+ Gastrointestinal/Abdominal: non tender, soft Back Exam: no CVA tenderness, no vertebral tenderness, muscle spasm Extremity Exam: no evidence of injury, normal range of motion, no pedal edema Neurologic: no motor/sensory deficits, alert, oriented x 3, other - negative straight leg raising test Skin Exam: normal color, warm/dry Progress - Progress Progress: 07/15/18 16:33 Vital Signs 07/15/18 07/15/18 14:15 15:15 Temperature 98.0 F Pulse Rate [ 87 88 pulse ox] Respiratory 20 18 Rate Blood Pressure 111/69 110/75 [Left Arm] O2 Sat by Pulse 95 93 L Oximetry - Results/Orders Results/Orders: Vital Signs 07/15/18 07/15/18 14:15 15:15 Temperature 98.0 F Pulse Rate [ 87 88 pulse ox] Respiratory 20 18 Rate Blood Pressure 111/69 110/75 [Left Arm] O2 Sat by Pulse 95 93 L Oximetry 07/15/18 15:04 IV Care:Saline Lock per Protoc QSHIFT Laboratory Results - last 24 hr 07/15/18 07/15/18 07/15/18 15:13 15:25 15:25 WBC 6.5 RBC 5.93 H Hgb 16.7 H Hct 51.0 H MCV 86.1 MCH 28.1 MCHC 32.7 L RDW 18.3 H Plt Count 230 MPV 9.7 Absolute Neuts (auto) 2.90 Absolute Lymphs (auto) 2.60 Absolute Monos (auto) 0.50 Absolute Eos (auto) 0.60 H Absolute Basos (auto) 0.00 Neutrophils % 44.8 Lymphocytes % 39.0 Monocytes % 7.3 Eosinophils % 8.6 H Basophils % 0.3 Sodium 134 L Potassium 3.5 L Chloride 98 L Carbon Dioxide 26 Anion Gap 13.5 BUN 17 Creatinine 1.28 BUN/Creatinine Ratio 13.3 Random Glucose 94 Serum Osmolality 269.5 L Calcium 9.4 Urine Color Yellow Urine Appearance Clear Urine pH 6.0 Ur Specific [place] 1.010 Urine Protein Negative Urine Glucose (UA) Negative Urine Ketones Negative Urine Blood Negative Urine Nitrite Negative Urine Bilirubin Negative Urine Urobilinogen 0.2 Ur Leukocyte Esterase Negative Urine RBC 0 Urine WBC 1-3 Ur Epithelial Cells 1-3 Urine Bacteria Rare Departure - Departure Clinical Impression: Acute exacerbation of chronic low back pain Time of Disposition: 16:35 Disposition: Discharge to Home or Self Care Condition: Fair Departure Forms: ED Discharge - Pt. Copy, Patient Portal Self Enrollment Instructions: DI for Low Back Pain Referrals: GLADIS EPPS,RASHAD Rascon [Primary Care Provider] - 1-2 Weeks Prescriptions: Acetaminophen W/ Codeine [Tylenol W/ CODEINE #3] 1 ea PO TID PRN #10 PRN Reason: Pain Carisoprodol [Soma] 250 mg PO TID PRN #10 tab PRN Reason: Muscle Spasms Home Medications: Ambulatory Orders Alprazolam [Xanax] 2 mg PO QID 09/19/15 Celecoxib 200 mg PO BID 01/29/16 Triamterene & Hydrochlorothiaz [Maxzide-25 37.5-25 mg] 1 tab PO DAILY 07/16/16 Mometasone Furoate-Formoterol [Dulera 100-5 Mcg/Act] 1 aer IN DAILY 11/16/16 Pantoprazole Tablet [Protonix] 40 mg PO ACBK 11/16/16 Gabapentin 300 mg PO TID 12/25/16 Lamotrigine [Lamictal] 400 mg PO BEDTIME 12/25/16 Szyhmqlkafxbf-Lmwj-Vouqxpehym [Fioricet] 1 ea PO Q8H PRN #21 tab 02/17/18 Cariprazine HCl [Vraylar] 6 mg PO BEDTIME 02/17/18 Phentermine HCl 37.5 mg PO QAM 02/17/18 Thyroid [Dining Room Server Thyroid 30] 30 mg PO QAM 02/17/18 Tramadol HCl 50 mg PO Q6H PRN 02/17/18 Vortioxetine HBr [Trintellix] 5 mg PO QAM 02/17/18 Cyclobenzaprine HCl [Flexeril] 5 mg PO TID PRN #5 tab 05/05/18 Acetaminophen W/ Codeine [Tylenol W/ CODEINE #3] 1 ea PO TID PRN #10 07/15/18 Carisoprodol [Soma] 250 mg PO TID PRN #10 tab 07/15/18 Additional Instructions: Alternate ice pack and warm moist pack to affected area 3 x a day during waking hours only until better;Follow up with primary Md for recheck and referral to barrel painter
[2018-07-15] MEDS: KETOROLAC TROMETHAMINE INJ 30 MG/ML VIAL IV ONE (15:09)
[2018-07-15] MEDS: LACTATED RINGERS 1,000 ML IVS ONE (15:09)
[2018-07-15 16:57] VITALS: BP 98/70; TEMP 97.9; O2SAT 91
== END 2018-07-15 16:57 | disposition home or self-care (01) ==
LOC: ER 13:55
DX: M54.5 Low back pain (principal); G89.29 Other chronic pain; J44.9 Chronic obstructive pulmonary disease, unspecified; E07.9 Disorder of thyroid, unspecified; M10.9 Gout, unspecified; M06.9 Rheumatoid arthritis, unspecified; Z87.891 Personal history of nicotine dependence; Z79.899 Other long term (current) drug therapy; Z88.5 Allergy status to narcotic agent
CPT/HCPCS: 80048; 81001; 85025; J1885; J7120

== ENCOUNTER 2018-07-21 19:49 | Emergency (ER) | payer MEDICARE, OTHER ==
[2018-07-21] MEDS ORDERED: PROMETHAZINE HCL INJ 25 MG/ML VIAL ONE (21:23)
[2018-07-21] MEDS ORDERED: SODIUM CHLORIDE 0.9% 50ML 50 ML ONE (21:23)
[2018-07-21] MEDS: SODIUM CHLORIDE 0.9% 1000ML 1,000 ML IVS ONE (21:27)
[2018-07-21] MEDS: PROMETHAZINE HCL INJ 25 MG in SODIUM CHLORIDE 0.9% 50ML 50 ML IVPB ONE (21:27)
--- NOTE | 2018-07-21 21:36 | RAD ---
EXAM DESCRIPTION: Abdomen Series CLINICAL HISTORY: 42 years Female, nausea vomiting 24 hrs COMPARISON: Chest x-ray and abdominal x-ray September 21, 2016. FINDINGS: No consolidation. No pneumothorax. No significant pleural effusion. Cardiomediastinal silhouette is unremarkable. Bowel gas pattern appears unremarkable. No evidence of bowel dilatation to suggest obstruction. No obvious free air. Surgical clips in right upper quadrant are present. ACDF changes noted. Osseous structures are otherwise unremarkable. IMPRESSION: 1. No acute findings within the chest. 2. Unremarkable bowel gas pattern. Electronically signed by: Jagdish Schumacher MD 07/21/2018 9:33 PM CDT
[2018-07-21] MEDS: KETOROLAC TROMETHAMINE INJ 30 MG/ML VIAL IM ONE (23:16)
[2018-07-21] MEDS ORDERED: MIRTAZAPINE 15 MG TAB ONE (23:29)
[2018-07-21] MEDS ORDERED: lamoTRIgine 100 MG TAB ONE (23:30)
[2018-07-21] MEDS: ALPRAZolam 0.25 MG TAB PO ONE (23:36)
[2018-07-21] MEDS: MIRTAZAPINE 15 MG TAB PO SCH (23:37)
[2018-07-21] MEDS: lamoTRIgine 100 MG TAB PO ONE (23:37)
--- NOTE | 2018-07-22 00:46 | ED.PDOC ---
History of Present Illness - General Chief Complaint: GI Problem Stated Complaint: vomiting unable to take pain meds Time Seen by Provider: 07/21/18 20:06 Source: patient Exam Limitations: no limitations - History of Present Illness Initial Comments: the patient is a 42-year-old female presenting to the emergency room secondary to nausea and vomiting increased pain over the last 2 days. The most likely sources that she has been taking Tylenol 3 which she has not tolerated well in the past. She does have increasing chronic back pain due to long- standing issues and she has been trying to find a medication that works for her. She has been unable to hold down her psychiatric medications. She does appear to be withdrawing. Timing/Duration: unsure Severity: moderate Improving Factors: nothing Worsening Factors: nothing Associated Symptoms: loss of appetite, nausea/vomiting Allergies/Adverse Reactions: Allergies Codeine Adverse Reaction (Verified 07/15/18 14:31) makes her feel nauseated adhesive Allergy (Intermediate, Uncoded 07/15/18 14:31) Other Scarred her after lumpectomy Home Medications: Ambulatory Orders Alprazolam [Xanax] 2 mg PO QID 09/19/15 Celecoxib 200 mg PO BID 01/29/16 Mometasone Furoate-Formoterol [Dulera 100-5 Mcg/Act] 1 aer IN DAILY 11/16/16 Lamotrigine [Lamictal] 400 mg PO BEDTIME 12/25/16 Phentermine HCl 37.5 mg PO QAM 02/17/18 Thyroid [Operations Research Manager Thyroid 30] 30 mg PO QAM 02/17/18 Acetaminophen W/ Codeine [Tylenol W/ CODEINE #3] 1 ea PO TID PRN #10 07/15/18 Carisoprodol [Soma] 250 mg PO TID PRN #10 tab 07/15/18 Promethazine HCl 25 mg PO Q6H PRN #10 tab 07/22/18 Review of Systems - Review of Systems Constitutional: States: malaise EENTM: States: no symptoms reported Respiratory: States: no symptoms reported Cardiology: States: no symptoms reported Gastrointestinal/Abdominal: States: nausea, vomiting Musculoskeletal: States: back pain Skin: States: no symptoms reported Neurological: States: anxiety, depressed Endocrine: States: no symptoms reported Hematologic/Lymphatic: States: no symptoms reported All other Systems: No Change from Baseline Past Medical History (General) - Patient Medical History Hx Seizures: No Hx Stroke: No Hx Dementia: No Hx Asthma: No Hx of COPD: Yes Hx Cardiac Disorders: No Hx Congestive Heart Failure: No Hx Pacemaker: No Hx Hypertension: No Hx Thyroid Disease: Yes Hx Diabetes: No Hx Gastroesophageal Reflux: No Hx Renal Disease: No Hx Cancer: No Hx of HIV: No Hx Hepatitis C: No Hx MRSA: No Surgical History: cholecystectomy - Vaccination History Hx Tetanus, Diphtheria Vaccination: Yes Hx Influenza Vaccination: No Hx Pneumococcal Vaccination: No Immunizations Up to Date: No - Social History Hx Tobacco Use: Yes Hx Chewing Tobacco Use: No Hx Alcohol Use: No Hx Substance Use: No Hx Substance Use Treatment: No Hx Depression: No Hx Physical Abuse: No Hx Emotional Abuse: No Hx Suspected Abuse: No - Female History Patient is a Female of Child Bearing Age (10 -59 yrs old): No Hx Last Menstrual Period: 09/09/10 Patient : - tubal - Triage Comment ED Triage Comment: Unable to keep any thing down since starting tylenol with codeine. Pain in back, chronic. Family Medical History - Family History Mother Family History: No Known Living Status: Still Living Hx Family Asthma: No Hx Family Congestive Heart Failure: No Hx Family Hypertension: No Hx Family Stroke: No Hx Cardiac Disease: No Hx Family Diabetes: No Hx Family Cancer: Yes Hx Family;Other: Skin cancer;uterine cancer Father Family History: Unknown Living Status: Cause of : cancer lungs Hx Family Asthma: Yes Hx Family Congestive Heart Failure: Yes Hx Family Hypertension: Yes Hx Family Stroke: No Hx Cardiac Disease: Yes Hx Family Diabetes: Yes Hx Family Cancer: Yes Physical Exam - Physical Exam General Appearance: Alert, Anxious Eye Exam: bilateral normal Ears, Nose, Throat: hearing grossly normal, normal ENT inspection Neck: full range of motion, supple Respiratory: lungs clear, normal breath sounds, no respiratory distress, no accessory muscle use Cardiovascular/Chest: normal peripheral pulses, regular rate, rhythm, no edema Peripheral Pulses: radial,right: 2+, radial,left: 2+, dorsalis pedis,right: 2+, dorsalis pedis,left: 2+ Gastrointestinal/Abdominal: non tender, soft Rectal Exam: deferred Extremity: normal range of motion, non-tender, normal inspection, no pedal edema, normal capillary refill Neurologic: meat lugger II-XII nml as tested, alert, oriented x 3, other - highly anxious Skin Exam: normal color Comments: Vital Signs - 24 hr 07/21/18 07/21/18 20:05 22:00 Temperature 97.3 F L Pulse Rate [ 88 82 Left] Respiratory 20 20 Rate Blood Pressure 142/96 145/87 [Left Arm] O2 Sat by Pulse 95 95 Oximetry Progress - Progress Progress: 07/22/18 00:47 the patient's a 42-year-old female presenting with nausea and vomiting. This is likely due to the Tylenol 3 which she does need to discontinue. She can start taking Soma the day after tomorrow for her back pain for now. They do need to contact her primary care doctor to determine what pain medication to use long-term. The patient did have some dehydration and has received some IV fluids. She has received some nausea medications and has been able to take her psychiatric medications and is resting comfortably now. The patient will be written for some oral Phenergan for as needed use and she will also have one scopolamine patch placed which can be removed at any time if she is having confusion or acting drowsy. Keep well hydrated. Maintain a bland diet for the next week. ER warnings were given. - Results/Orders Results/Orders: 07/22/18 21:00 Mirtazapine [Remeron] 30 mg PO BEDTIME 07/22/18 22:56 lamoTRIgine [LaMICtal] 400 mg PO ONCE ONE Laboratory Results - last 24 hr 07/21/18 07/21/18 07/21/18 20:24 20:24 20:24 WBC 7.2 RBC 5.93 H Hgb 16.4 H Hct 50.6 H MCV 85.2 MCH 27.7 MCHC 32.5 L RDW 18.2 H Plt Count 187 MPV 9.8 Absolute Neuts (auto) 4.80 Absolute Lymphs (auto) 1.80 Absolute Monos (auto) 0.40 Absolute Eos (auto) 0.20 Absolute Basos (auto) 0.10 Neutrophils % 65.7 Lymphocytes % 24.9 Monocytes % 5.5 Eosinophils % 3.0 Basophils % 0.9 Sodium 137 Potassium 4.0 Chloride 100 L Carbon Dioxide 24 Anion Gap 17.0 BUN 18 Creatinine 0.87 BUN/Creatinine Ratio 20.7 H Random Glucose 96 Serum Osmolality 275.6 Calcium 9.7 Magnesium 2.1 Total Bilirubin 0.6 AST 22 ALT 19 Alkaline Phosphatase 95 Serum Total Protein 8.0 Albumin 4.8 Globulin 3.2 Albumin/Globulin Ratio 1.5 Amylase 25 L Lipase 20 L Urine Color Urine Appearance Urine pH Ur Specific [place] Urine Protein Urine Glucose (UA) Urine Ketones Urine Blood Urine Nitrite Urine Bilirubin Urine Urobilinogen Ur Leukocyte Esterase Urine RBC Urine WBC Ur Epithelial Cells Amorphous Sediment Urine Bacteria Urine Mucus Urine HCG, Qual Negative 07/21/18 23:13 WBC RBC Hgb Hct MCV MCH MCHC RDW Plt Count MPV Absolute Neuts (auto) Absolute Lymphs (auto) Absolute Monos (auto) Absolute Eos (auto) Absolute Basos (auto) Neutrophils % Lymphocytes % Monocytes % Eosinophils % Basophils % Sodium Potassium Chloride Carbon Dioxide Anion Gap BUN Creatinine BUN/Creatinine Ratio Random Glucose Serum Osmolality Calcium Magnesium Total Bilirubin AST ALT Alkaline Phosphatase Serum Total Protein Albumin Globulin Albumin/Globulin Ratio Amylase Lipase Urine Color Yellow Urine Appearance Sl cloudy Urine pH 7.0 Ur Specific [place] 1.020 Urine Protein 100 H Urine Glucose (UA) Negative Urine Ketones >=160 Urine Blood Trace-intact H Urine Nitrite Negative Urine Bilirubin Moderate Urine Urobilinogen 1.0 Ur Leukocyte Esterase Negative Urine RBC 3-5 H Urine WBC 5-10 H Ur Epithelial Cells >50 Amorphous Sediment 1+ Urine Bacteria 3+ H Urine Mucus Large Urine HCG, Qual acute abdominal series shows no acute pathology. Departure - Departure Clinical Impression: Adverse drug reaction, Dehydration Benzodiazepine withdrawal Qualifiers: Complication of substance-induced condition: uncomplicated Qualified Code(s): F13.230 - Sedative, hypnotic or anxiolytic dependence with withdrawal, uncomplicated Nausea and vomiting Qualifiers: Vomiting type: unspecified Vomiting Intractability: non-intractable Qualified Code(s): R11.2 - Nausea with vomiting, unspecified Disposition: Discharge to Home or Self Care Condition: Fair Departure Forms: ED Discharge - Pt. Copy, Patient Portal Self Enrollment Instructions: Side Effects From Medicines, Adverse Drug Reactions, Adult (DC) Diet: bland diet Activity: increase activity as tolerated Referrals: GLADIS EPPS,RASHAD Rascon [Primary Care Provider] - 1-2 Weeks Prescriptions: Promethazine HCl 25 mg PO Q6H PRN #10 tab PRN Reason: Vomiting Home Medications: Ambulatory Orders Alprazolam [Xanax] 2 mg PO QID 09/19/15 Celecoxib 200 mg PO BID 01/29/16 Mometasone Furoate-Formoterol [Dulera 100-5 Mcg/Act] 1 aer IN DAILY 11/16/16 Lamotrigine [Lamictal] 400 mg PO BEDTIME 12/25/16 Phentermine HCl 37.5 mg PO QAM 02/17/18 Thyroid [Operations Research Manager Thyroid 30] 30 mg PO QAM 02/17/18 Acetaminophen W/ Codeine [Tylenol W/ CODEINE #3] 1 ea PO TID PRN #10 07/15/18 Carisoprodol [Soma] 250 mg PO TID PRN #10 tab 07/15/18 Promethazine HCl 25 mg PO Q6H PRN #10 tab 07/22/18 Additional Instructions: the patient's a 42-year-old female presenting with nausea and vomiting. This is likely due to the Tylenol 3 which she does need to discontinue. She can start taking Soma the day after tomorrow for her back pain for now. They do need to contact her primary care doctor to determine what pain medication to use long-term. The patient did have some dehydration and has received some IV fluids. She has received some nausea medications and has been able to take her psychiatric medications and is resting comfortably now. The patient will be written for some oral Phenergan for as needed use and she will also have one scopolamine patch placed which can be removed at any time if she is having confusion or acting drowsy. Keep well hydrated. Maintain a bland diet for the next week. ER warnings were given.
[2018-07-22] MEDS: SCOPOLAMINE PATCH 1.5MG 1 EA TD ONE (00:56)
[2018-07-22] MEDS: DEXAMETHASONE INJ 4 MG/ML VIAL IV ONE (00:56)
[2018-07-22 01:16] VITALS: BP 132/89; TEMP 97.9; O2SAT 92
== END 2018-07-22 01:17 | disposition home or self-care (01) ==
LOC: ER 19:49
DX: R11.2 Nausea with vomiting, unspecified (principal); F13.230 Sedative, hypnotic or anxiolytic dependence with withdrawal, uncomplicated; E86.0 Dehydration; T40.2X5A Adverse effect of other opioids, initial encounter; G89.29 Other chronic pain; M54.9 Dorsalgia, unspecified; J44.9 Chronic obstructive pulmonary disease, unspecified; E07.9 Disorder of thyroid, unspecified; Z79.899 Other long term (current) drug therapy; Z87.891 Personal history of nicotine dependence; Z90.49 Acquired absence of other specified parts of digestive tract; Z88.5 Allergy status to narcotic agent
CPT/HCPCS: 36415; 74019; 80053; 81001; 81025; 82150; 83690; 83735; 85025; A4216; J1100; J1885; J2550; J7030

== ENCOUNTER → 2018-08-14 | Outpatient (CLI) | payer OTHER, MEDICARE ==
--- NOTE | 2018-08-14 11:12 | MRI ---
EXAM DESCRIPTION: Lumbar Spine w/o Contrast CLINICAL HISTORY: Other spondylosis with radiculopathy, lumbar region COMPARISON: None Available. TECHNIQUE: MRI of the lumbar spine is performed according to our usual protocol with axial and sagittal multi sequence imaging. FINDINGS: Sagittal T2 images reveal decreased signal intensity consistent with desiccation of the intervertebral discs at levels L5-S1 and L4-5 but especially L3-4. Posterior annular bulge is most prominent at L3-4. No prevertebral mass or aneurysm. Lower cord and conus appear normal. Tip of the conus is behind T12-L1. Sagittal T1 images reveal benign marrow signal characteristics. Normal T1 signal intensity and appearance of the lower cord and conus. Sagittal STIR images are negative for marrow edema within the vertebral bodies or posterior elements. No paraspinous fluid collection or cystic lesion. Axial T1 and T2-weighted images were obtained to evaluate the disc levels. T12-L1: No posterior annular bulge or herniation. No spinal stenosis or neural foraminal narrowing. Facets appear normal. Normal appearance of the lower cord and conus. L1-2: No posterior annular bulge or herniation. No spinal stenosis or neural foraminal narrowing. Facets appear normal. L2-3: No posterior annular bulge or herniation. No spinal stenosis or neural foraminal narrowing. Facets appear normal. L3-4: Mild diffuse posterior annular bulge with superimposed focal disc protrusion in the midline extending inferiorly behind upper endplate of L4. This measures 3.5 mm in AP dimension and approximately 7 mm in mediolateral width (axial image 11, series 501). No spinal stenosis or neural foraminal narrowing. Facets appear moderately hypertrophic. L4-5: Mild diffuse posterior annular bulge with right lateral accentuation. There is mild narrowing of the bilateral neural foramina. No spinal stenosis. Moderate facet hypertrophic spurring and ligamentum flavum thickening without lateral recess compromise. L5-S1: Mild diffuse posterior annular bulge with left lateral accentuation. No spinal stenosis. There is moderate left neural foraminal narrowing. Mild facet hypertrophy bilaterally. Sacrum appears intact. No retroperitoneal adenopathy or aneurysm. T1 images suggest low signal intensity superolateral left renal lesion. Previous CT June 20, 2015 showed a cyst in this area. IMPRESSION: Mild diffuse L3-4 posterior annular bulge with superimposed small midline disc protrusion 3.5 mm. Electronically signed by: Franklin Torres MD 08/14/2018 11:10 AM CDT
== END ==
LOC: MRI 08:51
PROVIDERS: ATTEND Neurological Surgery
DX: M47.26 Other spondylosis with radiculopathy, lumbar region (principal); M51.16 Intervertebral disc disorders with radiculopathy, lumbar region

== ENCOUNTER → 2018-11-28 | Outpatient (CLI) | payer OTHER ==
--- NOTE | 2018-11-29 08:24 | CT ---
EXAM DESCRIPTION: Lumbar Spine CLINICAL HISTORY: 43 years, Female, LUMBAR RADICULOPATHY COMPARISON: MRI lumbar spine August 14, 2018 TECHNIQUE: Lumbar CT with thin-section axial imaging with reconstructed MPR images reviewed as well. FINDINGS: Sagittal reformatted images show intervertebral disc spacer at L3-4 level with pedicle screws and posterior stabilization rods at L3 and L4. Below the L4 pedicle screws, lucency is seen consistent with bilateral L4 fractures through the posterior elements at the junction of lower margin of the pedicles and upper pars interarticularis. No spondylolisthesis. Coronal images show posterior bone graft material related to bilateral fusion masses. Sacrum appears intact with mildly narrowed SI joints. Axial images are negative for paraspinous hematoma or abscess. Complete laminectomy posterior to L3-4 and L4-5 levels. T11-12 through L1-2 levels are unremarkable. Posterior annular bulge is mild at L2-3 without spinal stenosis or significant neural foraminal narrowing. L3-4 level is fused. Metal artifacts obscure the posterior elements. L4-5: Mild to moderate diffuse posterior annular bulge is seen with [id number] bilateral neural foraminal narrowing. No significant spinal stenosis. Mild facet degenerative changes with subchondral cyst formation. L5-S1: Mild diffuse posterior annular bulge with moderate narrowing of the left neural foramen. IMPRESSION: Postop L3-4 intervertebral disc fusion with posterior laminectomies and stabilization hardware as described. Bilateral L4 fractures at junction of pars interarticularis and pedicles. This exam was performed according to our departmental dose-optimization program, which includes automated exposure control, adjustment of the mA and/or kV according to patient size and/or use of iterative reconstruction technique. Electronically signed by: Franklin Torres MD 11/29/2018 8:22 AM CDT
== END ==
LOC: CT 10:05
PROVIDERS: ATTEND Neurological Surgery
DX: M47.26 Other spondylosis with radiculopathy, lumbar region (principal); S32.048A Other fracture of fourth lumbar vertebra, initial encounter for closed fracture; Z98.1 Arthrodesis status

== ENCOUNTER 2019-01-09 11:49 | Emergency (ER) | payer OTHER, MEDICARE ==
[2019-01-09 12:12] VITALS: TEMP 98.8
[2019-01-09] MEDS ORDERED: METHOCARBAMOL 750 MG TAB PO ONE (12:30)
[2019-01-09] MEDS ORDERED: KETOROLAC TROMETHAMINE INJ 30 MG/ML VIAL IM ONE (12:30)
[2019-01-09] MEDS ORDERED: HYDROcodone 5MG/APAP 325MG 1 EA TAB PO ONE (12:30)
[2019-01-09] MEDS ORDERED: GABAPENTIN 100 MG CAP PO ONE (12:31)
[2019-01-09] MEDS ORDERED: GABAPENTIN 300 MG CAP ONE (12:39)
[2019-01-09] MEDS ORDERED: GABAPENTIN 300 MG CAP PO ONE (12:48)
--- NOTE | 2019-01-09 12:53 | ED.PDOC ---
History of Present Illness - General Chief Complaint: Back Pain or Injury Stated Complaint: back pain Time Seen by Provider: 01/09/19 11:56 - History of Present Illness Initial Comments: Pt is a 43 y.o. F w/ pmh of chronic back pain who presents c/o worsening back pain. Pain has been present for months, says it has worsened since having lumbar fusion performed this summer. She was previously taking hydrocodone and fentanyl for her pain but reports that her doctor has weaned her off of these medications and has not had them this past month. Says the pain is in her low back and sometimes radiates to her legs. Associated with some paresthesias. no weakness. Denies fevers, chills, bowel/bladder dysfunction, or h/o iv drug use. Allergies/Adverse Reactions: Allergies Codeine Adverse Reaction (Verified 07/15/18 14:31) makes her feel nauseated adhesive Allergy (Intermediate, Uncoded 07/15/18 14:31) Other Scarred her after lumpectomy Home Medications: Ambulatory Orders Alprazolam [Xanax] 2 mg PO QID 09/19/15 Celecoxib 200 mg PO BID 01/29/16 Mometasone Furoate-Formoterol [Dulera 100-5 Mcg/Act] 1 aer IN DAILY 11/16/16 Lamotrigine [Lamictal] 400 mg PO BEDTIME 12/25/16 Phentermine HCl 37.5 mg PO QAM 02/17/18 Thyroid [Electric Meter Tester Helper Thyroid 30] 30 mg PO QAM 02/17/18 Acetaminophen W/ Codeine [Tylenol W/ CODEINE #3] 1 ea PO TID PRN #10 07/15/18 Carisoprodol [Soma] 250 mg PO TID PRN #10 tab 07/15/18 Promethazine HCl 25 mg PO Q6H PRN #10 tab 07/22/18 Review of Systems - Review of Systems Constitutional: States: no symptoms reported EENTM: States: no symptoms reported Respiratory: States: no symptoms reported Cardiology: States: no symptoms reported Gastrointestinal/Abdominal: States: no symptoms reported Genitourinary: States: no symptoms reported Musculoskeletal: States: back pain, muscle pain Skin: States: no symptoms reported Neurological: States: no symptoms reported Endocrine: States: no symptoms reported Hematologic/Lymphatic: States: no symptoms reported All other Systems: Reviewed and Negative Past Medical History (General) - Patient Medical History Hx Seizures: No Hx Stroke: No Hx Dementia: No Hx Asthma: No Hx of COPD: Yes Hx Cardiac Disorders: No Hx Congestive Heart Failure: No Hx Pacemaker: No Hx Hypertension: No Hx Thyroid Disease: Yes Hx Diabetes: No Hx Gastroesophageal Reflux: No Hx Renal Disease: No Hx Cancer: No Hx of HIV: No Hx Hepatitis C: No Hx MRSA: No Surgical History: cholecystectomy, other - Vaccination History Hx Tetanus, Diphtheria Vaccination: Yes Hx Influenza Vaccination: No Hx Pneumococcal Vaccination: No - Social History Hx Tobacco Use: Yes Hx Chewing Tobacco Use: No Hx Alcohol Use: No Hx Substance Use: No Hx Substance Use Treatment: No Hx Depression: No Hx Physical Abuse: No Hx Emotional Abuse: No Hx Suspected Abuse: No - Female History Hx Last Menstrual Period: 09/09/10 Patient : - tubal Family Medical History - Family History Mother Family History: No Known Living Status: Still Living Hx Family Asthma: No Hx Family Congestive Heart Failure: No Hx Family Hypertension: No Hx Family Stroke: No Hx Cardiac Disease: No Hx Family Diabetes: No Hx Family Cancer: Yes Hx Family;Other: Skin cancer;uterine cancer Father Family History: Unknown Living Status: Cause of : cancer lungs Hx Family Asthma: Yes Hx Family Congestive Heart Failure: Yes Hx Family Hypertension: Yes Hx Family Stroke: No Hx Cardiac Disease: Yes Hx Family Diabetes: Yes Hx Family Cancer: Yes Physical Exam - Physical Exam General Appearance: Alert, Comfortable Eyes, Ears, Nose, Throat Exam: PERRL/EOMI, normal ENT inspection Neck Exam: non-tender, full range of motion Cardiovascular/Respiratory: regular rate, rhythm, normal peripheral pulses Gastrointestinal/Abdominal: non tender, soft Back Exam: other - b/l Lumbar paraspinal tenderness. negative SLR, normal patellar reflexes, sensation intact Extremity Exam: no evidence of injury, normal range of motion Neurologic: no motor/sensory deficits, alert, other - anxious appearing Skin Exam: normal color, warm/dry Progress - Progress Progress: 01/09/19 12:54 MDM Pt w/ h/o chronic back pain here with acute on chronic pain. No signs or symptoms to necessitate imaging. Pain has been on going for months. Worse now that she is no longer taking hydrocodone/fentanyl patches. Suspect underlying psychiatric component to pain. Informed patient that I will not be able to prescribe narcotics. Encouraged patient to resume home physical therapy and to f/u with pcp. Departure - Departure Clinical Impression: Chronic low back pain Qualifiers: Back pain laterality: bilateral Sciatica presence: with sciatica Sciatica laterality: bilateral sciatica Qualified Code(s): M54.42 - Lumbago with sciatica, left side Disposition: Discharge to Home or Self Care Condition: Fair Departure Forms: ED Discharge - Pt. Copy, Patient Portal Self Enrollment Instructions: DI for Low Back Pain Referrals: GLADIS EPPS,RASHAD Rascon [Primary Care Provider] - 1-2 Weeks Home Medications: Ambulatory Orders Alprazolam [Xanax] 2 mg PO QID 09/19/15 Celecoxib 200 mg PO BID 01/29/16 Mometasone Furoate-Formoterol [Dulera 100-5 Mcg/Act] 1 aer IN DAILY 11/16/16 Lamotrigine [Lamictal] 400 mg PO BEDTIME 12/25/16 Phentermine HCl 37.5 mg PO QAM 02/17/18 Thyroid [Electric Meter Tester Helper Thyroid 30] 30 mg PO QAM 02/17/18 Acetaminophen W/ Codeine [Tylenol W/ CODEINE #3] 1 ea PO TID PRN #10 07/15/18 Carisoprodol [Soma] 250 mg PO TID PRN #10 tab 07/15/18 Promethazine HCl 25 mg PO Q6H PRN #10 tab 07/22/18
[2019-01-09 13:22] VITALS: BP 115/95; O2SAT 99
== END 2019-01-09 13:14 | disposition home or self-care (01) ==
LOC: ER 11:49
DX: M54.42 Lumbago with sciatica, left side (principal); G89.29 Other chronic pain; J44.9 Chronic obstructive pulmonary disease, unspecified; E07.9 Disorder of thyroid, unspecified; Z98.1 Arthrodesis status; Z87.891 Personal history of nicotine dependence; Z79.899 Other long term (current) drug therapy; Z88.5 Allergy status to narcotic agent

== ENCOUNTER 2019-07-03 18:20 | Emergency (ER) | payer OTHER, MEDICARE ==
[2019-07-03] MEDS ORDERED: MORPHINE SULFATE INJ 10 MG/ML VIAL IM ONE (18:56)
[2019-07-03] MEDS ORDERED: ONDANSETRON ODT 8 MG TAB SL ONE (18:56)
--- NOTE | 2019-07-03 19:13 | ED.PDOC ---
History of Present Illness - General Chief Complaint: Back Pain or Injury Stated Complaint: back pain Time Seen by Provider: 07/03/19 18:43 Source: patient, RN notes reviewed, Vital Signs reviewed, family Exam Limitations: no limitations - History of Present Illness Initial Comments: This is a 43-year-old female with longstanding history of chronic back pain, status post L4/5 fusion in 2019. She has had ongoing problems with back pain since the surgery was performed. She states her pain is worsened over the past 2 to 3 days. She denies any incontinence of bowel/bladder. She denies any recent trauma. She is able to walk, but states it is painful.She states "both my legs feel heavy." She states she feels a "pop" in her back when she moves. She sees pain management in [place], and states they are planning to do a spinal cord stimulator in the future for back pain. She denies any recent fevers. No sick contacts.She takes Tylenol 3 at home for pain, but states it is not adequately controlling her pain right now. Allergies/Adverse Reactions: Allergies Codeine Adverse Reaction (Verified 07/03/19 18:34) makes her feel nauseated adhesive Allergy (Intermediate, Uncoded 07/03/19 18:34) Other Scarred her after lumpectomy Home Medications: Ambulatory Orders Alprazolam [Xanax] 2 mg PO QID 09/19/15 Celecoxib 200 mg PO BID 01/29/16 Mometasone Furoate-Formoterol [Dulera 100-5 Mcg/Act] 1 aer IN DAILY 11/16/16 Lamotrigine [Lamictal] 400 mg PO BEDTIME 12/25/16 Phentermine HCl 37.5 mg PO QAM 02/17/18 Thyroid [Pie Cutter Thyroid 30] 30 mg PO QAM 02/17/18 Acetaminophen W/ Codeine [Tylenol W/ CODEINE #3] 1 ea PO TID PRN #10 07/15/18 Carisoprodol [Soma] 250 mg PO TID PRN #10 tab 07/15/18 Promethazine HCl 25 mg PO Q6H PRN #10 tab 07/22/18 Review of Systems - Review of Systems Constitutional: Denies: chills, fever EENTM: Denies: nose congestion, throat pain Respiratory: Denies: cough, short of breath, stridor Cardiology: Denies: chest pain, edema Gastrointestinal/Abdominal: States: other - No incontinence of stool. Denies: abdominal pain, diarrhea, nausea, vomiting Genitourinary: States: other - No incontinence. Denies: dysuria, frequency, hematuria Musculoskeletal: States: back pain. Denies: joint pain, muscle pain, neck pain Neurological: Denies: headache, numbness, paresthesia, weakness Endocrine: Denies: excessive sweating, unexplained weight gain, unexplained weight loss Hematologic/Lymphatic: States: no symptoms reported Past Medical History (General) - Patient Medical History Hx Seizures: No Hx Stroke: No Hx Dementia: No Hx Asthma: No Hx of COPD: Yes Hx Cardiac Disorders: No Hx Congestive Heart Failure: No Hx Pacemaker: No Hx Hypertension: No Hx Thyroid Disease: Yes Hx Diabetes: No Hx Gastroesophageal Reflux: No Hx Renal Disease: No Hx Cancer: No Hx of HIV: No Hx Hepatitis C: No Hx MRSA: No Surgical History: cholecystectomy, other - Vaccination History Hx Tetanus, Diphtheria Vaccination: Yes Hx Influenza Vaccination: No Hx Pneumococcal Vaccination: No - Social History Hx Tobacco Use: Yes Hx Chewing Tobacco Use: No Hx Alcohol Use: No Hx Substance Use: No Hx Substance Use Treatment: No Hx Depression: No Hx Physical Abuse: No Hx Emotional Abuse: No Hx Suspected Abuse: No - Female History Hx Last Menstrual Period: 09/09/10 Patient : No Family Medical History - Family History Mother Family History: No Known Living Status: Still Living Hx Family Asthma: No Hx Family Congestive Heart Failure: No Hx Family Hypertension: No Hx Family Stroke: No Hx Cardiac Disease: No Hx Family Diabetes: No Hx Family Cancer: Yes Hx Family;Other: Skin cancer;uterine cancer Father Family History: Unknown Living Status: Cause of : cancer lungs Hx Family Asthma: Yes Hx Family Congestive Heart Failure: Yes Hx Family Hypertension: Yes Hx Family Stroke: No Hx Cardiac Disease: Yes Hx Family Diabetes: Yes Hx Family Cancer: Yes Physical Exam - Physical Exam General Appearance: Alert, No apparent distress, Obese Eyes, Ears, Nose, Throat Exam: normal ENT inspection Neck Exam: non-tender, full range of motion, normal inspection Cardiovascular/Respiratory: regular rate, rhythm, no M/R/G, normal peripheral pulses, no JVD Gastrointestinal/Abdominal: non tender, soft Back Exam: other - Lumbar incision, diffuse lower lumbar midline tenderness without step-offs or deformities, no overlying skin changes, no CVA tenderness Extremity Exam: non-tender, no pedal edema Neurologic: no motor/sensory deficits, alert, normal mood/affect, oriented x 3, abnormal gait Skin Exam: normal color, warm/dry Progress - Progress Progress: 07/03/19 19:46 Late entry: This patient has a longstanding history of chronic low back pain for which she sees pain management and spine surgery. 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 She has no red flag symptoms for cauda equina/compressive myelopathy/epidural abscess. She states she does feel a "pop" when she moves, but there is no recent trauma. She is requesting additional imaging, but given absence of trauma and no red flag symptoms, I do not feel x-ray or CT will adequately evaluate the source of her pain. I strongly suspect she needs an MRI, but do not feel it needs to be done emergently at this time. I recommend she follow-up with her pain management/spine surgeon by phone tomorrow to discuss arranging an outpatient MRI. Strict warnings given to return the emergency room for worsening pain, incontinence of bowel/bladder, fever, inability to walk, or any other concerns. MDM: DDX: Chronic back pain, DDD, HNP, low suspicion for spinal emergency at this time. Jens Velasco DO [facility] #[id number] Departure - Departure Clinical Impression: Acute exacerbation of chronic low back pain Disposition: Discharge to Home or Self Care Condition: Good Departure Forms: ED Discharge - Pt. Copy, Patient Portal Self Enrollment Instructions: DI for Low Back Pain, DI for Back Pain With Sciatica Referrals: GLADIS EPPS,RASHAD Rascon [Primary Care Provider] - 1-5 Days Home Medications: Ambulatory Orders Alprazolam [Xanax] 2 mg PO QID 09/19/15 Celecoxib 200 mg PO BID 01/29/16 Mometasone Furoate-Formoterol [Dulera 100-5 Mcg/Act] 1 aer IN DAILY 11/16/16 Lamotrigine [Lamictal] 400 mg PO BEDTIME 12/25/16 Phentermine HCl 37.5 mg PO QAM 02/17/18 Thyroid [Pie Cutter Thyroid 30] 30 mg PO QAM 02/17/18 Acetaminophen W/ Codeine [Tylenol W/ CODEINE #3] 1 ea PO TID PRN #10 07/15/18 Carisoprodol [Soma] 250 mg PO TID PRN #10 tab 07/15/18 Promethazine HCl 25 mg PO Q6H PRN #10 tab 07/22/18
[2019-07-03 19:49] VITALS: BP 123/80; TEMP 98.3; O2SAT 92
== END 2019-07-03 19:46 | disposition home or self-care (01) ==
LOC: ER 18:20
DX: G89.29 Other chronic pain (principal); M54.5 Low back pain; J44.9 Chronic obstructive pulmonary disease, unspecified; F17.200 Nicotine dependence, unspecified, uncomplicated

== ENCOUNTER 2019-07-04 11:21 | Emergency (ER) | payer OTHER, MEDICARE ==
--- NOTE | 2019-07-04 11:45 | ED.PDOC ---
History of Present Illness - General Chief Complaint: Back Pain or Injury Stated Complaint: Lower Back Pain Time Seen by Provider: 07/04/19 11:38 - History of Present Illness Initial Comments: 43 y/o fe with history of lumbar pain. She has had low back pain with radiation to both legs that is very hard to treat. Allergies/Adverse Reactions: Allergies Codeine Adverse Reaction (Verified 07/03/19 18:34) makes her feel nauseated adhesive Allergy (Intermediate, Uncoded 07/03/19 18:34) Other Scarred her after lumpectomy Home Medications: Ambulatory Orders RX: Alprazolam [Xanax] 2 mg PO QID 09/19/15 RX: Celecoxib 200 mg PO BID 01/29/16 Mometasone Furoate-Formoterol [Dulera 100-5 Mcg/Act] 1 aer IN DAILY 11/16/16 Lamotrigine [Lamictal] 400 mg PO BEDTIME 12/25/16 RX: Phentermine HCl 37.5 mg PO QAM 02/17/18 Thyroid [[employer] Thyroid 30] 30 mg PO QAM 02/17/18 Acetaminophen W/ Codeine [Tylenol W/ CODEINE #3] 1 ea PO TID PRN #10 07/15/18 Carisoprodol [Soma] 250 mg PO TID PRN #10 tab 07/15/18 RX: Promethazine HCl 25 mg PO Q6H PRN #10 tab 07/22/18 Cyclobenzaprine HCl [Flexeril] 10 mg PO TID PRN #20 tab 07/04/19 Hydrocodone-Acetaminophen [Hydrocodone Bitartrate/AC 7.5-325 mg] 1 tab PO Q6HR PRN 7 Days tab 07/04/19 Promethazine Tab [Phenergan Tablet] 25 mg PO .Q4H PRN #10 tab 07/04/19 Past Medical History (General) - Patient Medical History Hx Seizures: No Hx Stroke: No Hx Dementia: No Hx Asthma: No Hx of COPD: Yes Hx Cardiac Disorders: No Hx Congestive Heart Failure: No Hx Pacemaker: No Hx Hypertension: No Hx Thyroid Disease: Yes Hx Diabetes: No Hx Gastroesophageal Reflux: No Hx Renal Disease: No Hx Cancer: No Hx of HIV: No Hx Hepatitis C: No Hx MRSA: No - Vaccination History Hx Tetanus, Diphtheria Vaccination: Yes Hx Influenza Vaccination: No Hx Pneumococcal Vaccination: No - Social History Hx Tobacco Use: Yes Hx Chewing Tobacco Use: No Hx Alcohol Use: No Hx Substance Use: No Hx Substance Use Treatment: No Hx Depression: No Hx Physical Abuse: No Hx Emotional Abuse: No Hx Suspected Abuse: No - Female History Hx Last Menstrual Period: 09/09/10 Patient : No Family Medical History - Family History Father Family History: Unknown Living Status: Cause of : cancer lungs Hx Family Asthma: Yes Hx Family Congestive Heart Failure: Yes Hx Family Hypertension: Yes Hx Family Stroke: No Hx Cardiac Disease: Yes Hx Family Diabetes: Yes Hx Family Cancer: Yes Mother Family History: No Known Living Status: Still Living Hx Family Asthma: No Hx Family Congestive Heart Failure: No Hx Family Hypertension: No Hx Family Stroke: No Hx Cardiac Disease: No Hx Family Diabetes: No Hx Family Cancer: Yes Hx Family;Other: Skin cancer;uterine cancer Departure - Departure Clinical Impression: Degeneration of lumbar intervertebral disc Disposition: Discharge to Home or Self Care Condition: Good Departure Forms: ED Discharge - Pt. Copy, Patient Portal Self Enrollment Instructions: DI for Low Back Pain, DI for Back Pain With Sciatica Referrals: GLADIS EPPS,RASHAD Rascon [Primary Care Provider] - 1-2 Weeks Prescriptions: Hydrocodone-Acetaminophen [Hydrocodone Bitartrate/AC 7.5-325 mg] 1 tab PO Q6HR PRN 7 Days tab PRN Reason: Moderate To Severe Pain Cyclobenzaprine HCl [Flexeril] 10 mg PO TID PRN #20 tab PRN Reason: muscle spasm Promethazine Tab [Phenergan Tablet] 25 mg PO .Q4H PRN #10 tab PRN Reason: Nausea Home Medications: Ambulatory Orders RX: Alprazolam [Xanax] 2 mg PO QID 09/19/15 RX: Celecoxib 200 mg PO BID 01/29/16 Mometasone Furoate-Formoterol [Dulera 100-5 Mcg/Act] 1 aer IN DAILY 11/16/16 Lamotrigine [Lamictal] 400 mg PO BEDTIME 12/25/16 RX: Phentermine HCl 37.5 mg PO QAM 02/17/18 Thyroid [[employer] Thyroid 30] 30 mg PO QAM 02/17/18 Acetaminophen W/ Codeine [Tylenol W/ CODEINE #3] 1 ea PO TID PRN #10 07/15/18 Carisoprodol [Soma] 250 mg PO TID PRN #10 tab 07/15/18 RX: Promethazine HCl 25 mg PO Q6H PRN #10 tab 07/22/18 Cyclobenzaprine HCl [Flexeril] 10 mg PO TID PRN #20 tab 07/04/19 Hydrocodone-Acetaminophen [Hydrocodone Bitartrate/AC 7.5-325 mg] 1 tab PO Q6HR PRN 7 Days tab 07/04/19 Promethazine Tab [Phenergan Tablet] 25 mg PO .Q4H PRN #10 tab 07/04/19
[2019-07-04] MEDS ORDERED: MORPHINE SULFATE INJ 10 MG/ML VIAL IM ONE (12:16)
[2019-07-04] MEDS ORDERED: PROMETHAZINE HCL INJ 25 MG/ML VIAL IM ONE (12:17)
[2019-07-04] MEDS ORDERED: PROMETHAZINE HCL 25 MG TAB PO ONE (13:06)
[2019-07-04 13:52] VITALS: BP 132/81; TEMP 98.6; O2SAT 94
== END 2019-07-04 13:45 | disposition home or self-care (01) ==
LOC: ER 11:21
DX: M54.5 Low back pain (principal); J44.9 Chronic obstructive pulmonary disease, unspecified; F17.200 Nicotine dependence, unspecified, uncomplicated
CPT/HCPCS: 81001; 87077; 87086; 87186; J2270; J2550

== ENCOUNTER → 2019-07-04 | Outpatient (CLI) | payer OTHER, MEDICARE ==
--- NOTE | 2019-07-04 12:46 | MRI ---
EXAM DESCRIPTION: Lumbar Spine w/wo Contrast CLINICAL HISTORY: BACK PAIN COMPARISON: August 14, 2018 TECHNIQUE: Multiplanar MRI of the lumbar spine was performed with and without contrast. FINDINGS: Lumbar vertebral body heights are maintained. Normal alignment mild straightening of the normal lumbar lordosis is seen. Conus medullaris terminates at T12-L1 and is unremarkable. Visualized intra-abdominal retroperitoneal structures show no acute findings. Fluid signal cortical cyst of the midpole left kidney is partly included in the [id number] measuring greater than 2.5 cm. Consider further evaluation with renal ultrasound. L1-2 No significant findings L2-3 No significant findings L3-4 Interval postsurgical changes from partial L3-4 laminectomy. Placement of interbody implant is seen with metallic susceptibility artifact from bilateral pedicle screw and vertical kashmir fixation. The thecal sac is dilated. No spinal canal stenosis. Mild left foraminal encroachment is seen although the neural foramen are not well evaluated because of metallic susceptibility artifact. No abnormal enhancement is seen metallic susceptibility artifact is more pronounced on the postcontrast images limiting evaluation. L4-5 Mild disc desiccation without disc space narrowing. Mild disc bulging in the inferior neural foramen bilaterally with mild bilateral facet hypertrophic and degenerative changes contributes to moderate bilateral foraminal encroachment which appears increased from previous exam. Curvilinear increased T2 signal annular tear is seen in the neural foramen bilaterally. L5-S1 Disc desiccation and mild disc space narrowing. Minimal less than 2 mm disc bulging in the inferior aspect of the neural foramen seen with mild bilateral facet hypertrophic and degenerative changes. Mild to moderate left and mild right foraminal encroachment is again seen. IMPRESSION: Interval postsurgical changes at L3-4 with posterior hardware fixation and partial laminectomy. Interval mild worsening of disc disease and facet arthropathy at L4-5 now contributing to moderate bilateral foraminal encroachment increased from previous. Mild disc disease and facet arthropathy at L5-S1 again contributes to left greater than right foraminal encroachment. Electronically signed by: Ze Light MD 07/04/2019 12:45 PM CDT
== END ==
LOC: MRI 09:40
PROVIDERS: ATTEND General Practice
DX: Z01.812 Encounter for preprocedural laboratory examination (principal); M51.36 Other intervertebral disc degeneration, lumbar region; M12.9 Arthropathy, unspecified; Z98.890 Other specified postprocedural states

== ENCOUNTER → 2019-07-25 | Outpatient (CLI) | payer OTHER, MEDICARE | LOC: LAB.O 13:37 | PROVIDERS: ATTEND Pain Medicine Interventional Pain Medicine | DX: M54.16 Radiculopathy, lumbar region (principal) ==

== ENCOUNTER → 2019-08-06 | Outpatient (CLI) | payer OTHER, MEDICARE ==
--- NOTE | 2019-08-06 16:08 | US ---
EXAM DESCRIPTION: Renal: Ultrasound. CLINICAL HISTORY: 44 years Female PAIN IN [facility] COMPARISON: CT abdomen April 2016. TECHNIQUE: Transcutaneous scanning: Two-dimensional and Doppler modes. FINDINGS: Right kidney measures 10.3 x 5.6 x 5.1 cm; mid-renal cortical thickness normal with normal .echogenicity. No hydronephrosis No echogenic stones. Mildly lobulated contour of the kidney with no perinephric fluid. Normal vascularity. Proximal ureter not seen.. Left kidney measures 11.8 x 6.0 x 5.1 cm; mid-renal cortical thickness normal with normal. echogenicity. No hydronephrosis. No echogenic stones. Mildly lobulated contour of the kidney with no perinephric fluid. 2.4 x 2.2 cm mid renal cyst.. Normal vascularity.. 4.1 mm echogenic stone versus focal fat lower pole, anterior cortex. No definitive acoustic shadowing. Proximal ureter not seen.. Urinary bladder was visualized. Prevoid volume 22.8 mL. Ureteral jet in the bladder not seen by color Doppler bilaterally. Patient could not void. Abdominal aorta: Normal caliber from the proximal segment to the distal bifurcation. IMPRESSION: 1. 2.4 cm cyst in the mid left kidney. 4.1 mm echogenic stone versus focal fat in the lower pole. No definitive acoustic shadowing. Minimal lobulation of the capsule with normal cortical thickness and echogenicity. No hydronephrosis or perinephric fluid. 2. Normal size of the right kidney with normal cortical thickness and echogenicity. Minimal lobulation of the capsule. Otherwise negative. 3. Urinary bladder minimally distended. Patient could not void. Normal caliber of the proximal abdominal aorta. Electronically signed by: Kiet Fontaine MD 08/06/2019 4:07 PM CDT
== END ==
LOC: US 09:37
PROVIDERS: ATTEND General Practice
DX: N28.1 Cyst of kidney, acquired (principal); N28.9 Disorder of kidney and ureter, unspecified

== ENCOUNTER → 2019-08-19 | Outpatient (CLI) | payer MEDICARE, OTHER ==
--- NOTE | 2019-08-19 18:18 | MRI ---
EXAM DESCRIPTION: Cervical Spine CLINICAL HISTORY: CERVICAL RADICULOPATHY COMPARISON: None Available TECHNIQUE: Multiplanar multi sequence noncontrast imaging FINDINGS: There is good alignment of the cervical spine. ACDF is seen at the C5-C7 levels. Craniocervical junction and the cord are unremarkable. No extra spinous abnormality is detected. C2-3: Unremarkable. C3-4: The disc is desiccated. A minimal annular bulge is evident. No neural foraminal disease of significance is observed. C4-5: Unremarkable. C5-6: ACDF is observed at this level. No disc level pathology is seen. No neural foraminal disease is observed. C6-7: ACDF is observed at this level. No disc level pathology is seen. No neural foraminal disease is noted. C7-T1: Unremarkable. IMPRESSION: 1. ACDF is seen at C5-6 and C6-7. No complication is observed. 2. A minimal annular bulge is seen at the C3-4 level. Electronically signed by: Fei Reynolds MD 08/19/2019 6:16 PM CDT
== END ==
LOC: MRI 14:04
PROVIDERS: ATTEND Pain Medicine Interventional Pain Medicine
DX: M96.1 Postlaminectomy syndrome, not elsewhere classified (principal); Z98.1 Arthrodesis status; M50.01 Cervical disc disorder with myelopathy, high cervical region

== ENCOUNTER → 2019-09-18 | Outpatient (CLI) | payer MEDICARE, OTHER ==
--- NOTE | 2019-09-18 16:31 | MRI ---
EXAM DESCRIPTION: Thoracic Spine w/o Contrast: Magnetic Resonance Imaging. CLINICAL HISTORY: CHRONIC POSTOPERATIVE PAIN COMPARISON: MRI scan cervical spine August 18 TECHNIQUE: Multiplanar, multiple standard sequences, non contrast MRI, thoracic spine. FINDINGS: Minimal desiccation of the T4-T5 disc and minimal disc space loss. Disc bulge to the left of midline abutting the cord in the left C4 nerve. Similar signal in the T5-T6 disc with similar loss of disc space and left posterior disc bulge abutting the cord and the left C5 nerve as it enters the foramen. Remaining discs with normal signal. Disc spaces are preserved. Canal and foramina are patent. Facet joints are unremarkable. Conus terminates T12-L1. ACDF inferior cervical spine. Cord with normal signal, no compression. No scoliosis. Paravertebral soft tissues are unremarkable. Punctate circumscribed hyperintense T1 and T2 objects in the superior T9 and T10 vertebral bodies abutting the superior endplates. These are consistent with hemangiomas. Otherwise normal marrow signal in the remaining vertebral bodies and the posterior elements. Vertebral bodies are not compressed at any level. IMPRESSION: 1. Disc desiccation and minimal disc space loss T4-T5 and T5-T6. Moderate left posterior bulge of the disc abutting the left ventral cord and the left T4 nerve and the left T5 nerve, respectively. No canal or foraminal stenosis. Correlate for radiculopathy at these levels.. Electronically signed by: Kiet Fontaine MD 09/18/2019 4:30 PM CDT
== END ==
LOC: MRI 12:59
PROVIDERS: ATTEND Pain Medicine Interventional Pain Medicine
DX: G89.28 Other chronic postprocedural pain (principal); M51.34 Other intervertebral disc degeneration, thoracic region; M51.84 Other intervertebral disc disorders, thoracic region

== ENCOUNTER → 2019-12-23 | Outpatient (CLI) | payer OTHER, MEDICARE | LOC: HHH 12:48 | PROVIDERS: ATTEND Nurse Practitioner Family | DX: E03.9 Hypothyroidism, unspecified (principal); F31.30 Bipolar disorder, current episode depressed, mild or moderate severity, unspecified; J44.9 Chronic obstructive pulmonary disease, unspecified ==

== ENCOUNTER 2020-05-09 17:24 | Emergency (ER) | payer MEDICARE, OTHER ==
[2020-05-09] MEDS ORDERED: HYDROmorphone HCL INJ 2 MG/ML VIAL IM ONE (18:06)
[2020-05-09] MEDS ORDERED: diazePAM INJ 10 MG/2 ML SYG IM ONE (18:07)
--- NOTE | 2020-05-09 18:15 | ED.PDOC ---
History of Present Illness - General Chief Complaint: Back Pain or Injury Stated Complaint: low back pain r/t fall 4 days ago Time Seen by Provider: 05/09/20 17:36 Source: patient, RN notes reviewed, Vital Signs reviewed, family - Exam Limitations: no limitations - History of Present Illness Initial Comments: Patient is a 44-year-old white female who presents with complaints of low back pain. Last week she fell after slipping on the ice and hurt her low back. Patient has a history of chronic back and neck pain. She has had fusions previously. Additionally she has a implantable pump that has hydromorphone, clonidine, baclofen and one other medication. Patient states that the pain is severe. It is in her low back. There is no radiation of the pain. It is c onstant. It is throbbing in nature. Nothing makes the pain better. It is worse when she moves or bends over. Right index finger and left great toe. Patient denies any perineal numbness. Patient denies any peripheral weakness. Patient denies any urinary/fecal incontinence/retention. Occurred: last week Severity: severe Pain Location: back Method of Injury: fall Improving Factors: nothing Worsening Factors: movement - Bending over or twisting. Loss of Consciousness: no loss of consciousness Associated Symptoms (Fall): denies symptoms Allergies/Adverse Reactions: Allergies Codeine Adverse Reaction (Verified 07/03/19 18:34) makes her feel nauseated adhesive Allergy (Intermediate, Uncoded 07/03/19 18:34) Other Scarred her after lumpectomy Home Medications: Ambulatory Orders Alprazolam [Xanax] 2 mg PO QID 09/19/15 Celecoxib 200 mg PO BID 01/29/16 Mometasone Furoate-Formoterol [Dulera 100-5 Mcg/Act] 1 aer IN DAILY 11/16/16 Lamotrigine [Lamictal] 400 mg PO BEDTIME 12/25/16 Phentermine HCl [Phentermine Hydrochloride] 37.5 mg PO QAM 02/17/18 Thyroid [Analytical Chemist Thyroid 30] 30 mg PO QAM 02/17/18 Acetaminophen W/ Codeine [Tylenol W/ CODEINE #3] 1 ea PO TID PRN #10 07/15/18 Carisoprodol [Soma] 250 mg PO TID PRN #10 tab 07/15/18 Promethazine HCl 25 mg PO Q6H PRN #10 tab 07/22/18 Cyclobenzaprine HCl [Flexeril] 10 mg PO TID PRN #20 tab 07/04/19 Hydrocodone-Acetaminophen [Hydrocodone Bitartrate/AC 7.5-325 mg] 1 tab PO Q6HR PRN 7 Days tab 07/04/19 Promethazine Tab [Phenergan Tablet] 25 mg PO .Q4H PRN #10 tab 07/04/19 Review of Systems - Review of Systems Constitutional: States: no symptoms reported, see HPI. Denies: chills, fever, malaise, weakness EENTM: States: no symptoms reported. Denies: eye pain, blurred vision, double vision Respiratory: States: no symptoms reported. Denies: cough, short of breath, stridor Cardiology: States: no symptoms reported. Denies: chest pain, palpitations Gastrointestinal/Abdominal: States: no symptoms reported. Denies: abdominal pain, diarrhea, nausea, vomiting Genitourinary: States: no symptoms reported. Denies: dysuria, frequency Musculoskeletal: States: see HPI, back pain Skin: States: no symptoms reported. Denies: change in color, rash Neurological: States: no symptoms reported, tingling. Denies: headache, weakness Endocrine: States: no symptoms reported. Denies: increased hunger, increased thirst, increased urine Hematologic/Lymphatic: States: no symptoms reported. Denies: blood clots, easy bleeding All other Systems: No Change from Baseline Past Medical History (General) - Patient Medical History Hx Seizures: No Hx Stroke: No Hx Dementia: No Hx Asthma: No Hx of COPD: Yes Hx Cardiac Disorders: No Hx Congestive Heart Failure: No Hx Pacemaker: No Hx Hypertension: No Hx Thyroid Disease: Yes Hx Diabetes: No Hx Gastroesophageal Reflux: No Hx Renal Disease: No Hx Cancer: No Hx of HIV: No Hx Hepatitis C: No Hx MRSA: No Surgical History: other - Vaccination History Hx Tetanus, Diphtheria Vaccination: Yes Hx Influenza Vaccination: No Hx Pneumococcal Vaccination: No - Social History Hx Tobacco Use: Yes Hx Chewing Tobacco Use: No Hx Alcohol Use: No Hx Substance Use: No Hx Substance Use Treatment: No Hx Depression: No Hx Physical Abuse: No Hx Emotional Abuse: No Hx Suspected Abuse: No - Female History Hx Last Menstrual Period: 09/09/10 Patient : No Family Medical History - Family History Mother Family History: No Known Living Status: Still Living Hx Family Asthma: No Hx Family Congestive Heart Failure: No Hx Family Hypertension: No Hx Family Stroke: No Hx Cardiac Disease: No Hx Family Diabetes: No Hx Family Cancer: Yes Hx Family;Other: Skin cancer;uterine cancer Father Family History: Unknown Living Status: Cause of : cancer lungs Hx Family Asthma: Yes Hx Family Congestive Heart Failure: Yes Hx Family Hypertension: Yes Hx Family Stroke: No Hx Cardiac Disease: Yes Hx Family Diabetes: Yes Hx Family Cancer: Yes Physical Exam - Physical Exam General Appearance: Alert, Anxious, Well Developed, Well Groomed, Well Hydrated, Well Nourished Head Injury: no evidence of injury Eye Exam: bilateral normal ENT Exam: hearing grossly normal, no evidence of ENT injury, no dental injury Neck Exam: non-tender, full range of motion, normal alignment Cardiovascular/Respiratory: regular rate, rhythm, no M/R/G, normal peripheral pulses, no JVD, normal breath sounds, no respiratory distress Gastrointestinal/Abdominal: normal bowel sounds, non tender, soft Back Exam: decreased range of motion, muscle spasm - Lumbar spine bilaterally, vertebral tenderness - Lumbar spine area. No step-offs or crepitus. 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 05/09/20 19:09 Patient improved after IM medications. Patient requesting additional shot prior to discharge. I deferred and stated that her pump which has hydromorphone, clonidine, baclofen and droperidol should suffice. Her and her voiced understanding and agreement with the plan of care. Plan on discharge home with follow-up with PCP. Vicente Ferreira M.D. #[id number] - Results/Orders Results/Orders: CT LUMBAR SPINE WITHOUT CONTRAST. CLINICAL HISTORY: Pain after fall on ice last week. COMPARISON: CT lumbar spine November 28, 2018 TECHNIQUE: Axial CT imaging of the lumbar spine without contrast. Reformatted coronal and sagittal images obtained. A dose reduction technique was utilized. FINDINGS: Normal lumbar lordosis. No acute fracture. No subluxation. Transpedicular fusion hardware at L3-4 with interbody fusion is stable and intact. Remaining disc spaces appear normal. There is an intrathecal catheter in the dorsal soft tissues extending into the spinal canal at L1. The superior extent is not included in the field of imaging. Bilateral laminectomy noted at L4. Included sacrum and iliac bones appear normal. The right adrenal gland appears normal. There is a left adrenal 1.1 cm nodule without interval change. Density values are compatible with benign adenoma. The included right kidney appears normal. There is a posterior lateral left renal 2.9 cm cyst although not fully imaged. Aorta and inferior vena cava are normal in caliber. Included bowel loops appear unremarkable. IMPRESSION: 1. No acute traumatic finding within the lumbar spine. 2. Stable L3-4 fusion. 3. Left renal cyst. Electronically signed by: Promise Langford DO 05/09/2020 6:40 PM [employer] Departure - Departure Clinical Impression: Back pain Qualifiers: Back pain location: low back pain Chronicity: chronic Back pain laterality: bilateral Sciatica presence: without sciatica Qualified Code(s): M54.5 - Low back pain; G89.29 - Other chronic pain Back contusion Qualifiers: Encounter type: initial encounter Laterality: unspecified laterality Qualified Code(s): S20.229A - Contusion of unspecified back wall of thorax, initial encounter Fall Qualifiers: Encounter type: initial encounter Qualified Code(s): W19.XXXA - Unspecified fall, initial encounter Time of Disposition: 19:12 Disposition: Discharge to Home or Self Care Condition: Good Departure Forms: ED Discharge - Pt. Copy, Patient Portal Self Enrollment Instructions: DI for Low Back Pain, Low Back Pain (DC), Contusion (DC) Diet: resume usual diet Activity: increase activity as tolerated Referrals: GLADIS EPPS,RASHAD Rascon [Primary Care Provider] - 1-5 Days Home Medications: Ambulatory Orders Alprazolam [Xanax] 2 mg PO QID 09/19/15 Celecoxib 200 mg PO BID 01/29/16 Mometasone Furoate-Formoterol [Dulera 100-5 Mcg/Act] 1 aer IN DAILY 11/16/16 Lamotrigine [Lamictal] 400 mg PO BEDTIME 12/25/16 Phentermine HCl [Phentermine Hydrochloride] 37.5 mg PO QAM 02/17/18 Thyroid [Analytical Chemist Thyroid 30] 30 mg PO QAM 02/17/18 Acetaminophen W/ Codeine [Tylenol W/ CODEINE #3] 1 ea PO TID PRN #10 07/15/18 Carisoprodol [Soma] 250 mg PO TID PRN #10 tab 07/15/18 Promethazine HCl 25 mg PO Q6H PRN #10 tab 07/22/18 Cyclobenzaprine HCl [Flexeril] 10 mg PO TID PRN #20 tab 07/04/19 Hydrocodone-Acetaminophen [Hydrocodone Bitartrate/AC 7.5-325 mg] 1 tab PO Q6HR PRN 7 Days tab 07/04/19 Promethazine Tab [Phenergan Tablet] 25 mg PO .Q4H PRN #10 tab 07/04/19
--- NOTE | 2020-05-09 18:41 | CT ---
CT LUMBAR SPINE WITHOUT CONTRAST. CLINICAL HISTORY: Pain after fall on ice last week. COMPARISON: CT lumbar spine November 28, 2018 TECHNIQUE: Axial CT imaging of the lumbar spine without contrast. Reformatted coronal and sagittal images obtained. A dose reduction technique was utilized. FINDINGS: Normal lumbar lordosis. No acute fracture. No subluxation. Transpedicular fusion hardware at L3-4 with interbody fusion is stable and intact. Remaining disc spaces appear normal. There is an intrathecal catheter in the dorsal soft tissues extending into the spinal canal at L1. The superior extent is not included in the field of imaging. Bilateral laminectomy noted at L4. Included sacrum and iliac bones appear normal. The right adrenal gland appears normal. There is a left adrenal 1.1 cm nodule without interval change. Density values are compatible with benign adenoma. The included right kidney appears normal. There is a posterior lateral left renal 2.9 cm cyst although not fully imaged. Aorta and inferior vena cava are normal in caliber. Included bowel loops appear unremarkable. IMPRESSION: 1. No acute traumatic finding within the lumbar spine. 2. Stable L3-4 fusion. 3. Left renal cyst. Electronically signed by: Promise Langford DO 05/09/2020 6:40 PM [facility]
[2020-05-09 19:11] VITALS: O2SAT 91
[2020-05-09 19:19] VITALS: BP 174/98; TEMP 97.1
== END 2020-05-09 19:25 | disposition home or self-care (01) ==
LOC: ER 17:24
DX: S30.0XXA Contusion of lower back and pelvis, initial encounter (principal); G89.29 Other chronic pain; E07.9 Disorder of thyroid, unspecified; J44.9 Chronic obstructive pulmonary disease, unspecified; W00.0XXA Fall on same level due to ice and snow, initial encounter; Y92.9 Unspecified place or not applicable; Z98.1 Arthrodesis status; Z79.891 Long term (current) use of opiate analgesic; Z88.5 Allergy status to narcotic agent; Z79.899 Other long term (current) drug therapy; Z97.8 Presence of other specified devices
CPT/HCPCS: 72131; J1170; J3360